=== PATIENT | female | born 1930 | race Caucasian/White ===

== ENCOUNTER 2019-02-24 19:15 | Inpatient (IN) | payer MEDICARE, OTHER ==
[2019-02-24] MEDS ORDERED: ATIVAN0.5 MG PO (19:22)
[2019-02-24] MEDS ORDERED: BISOPROLOL-HCT1 EAC1 (19:22)
[2019-02-24] MEDS ORDERED: PRAVACHOL20 MG (19:22)
[2019-02-24] MEDS ORDERED: NORVASC2.5 MG PO (19:22)
[2019-02-24] MEDS ORDERED: BISOPROLOL FUMARATE PO (19:32)
[2019-02-24 20:22] LABS: BASOPHILS 0.2 % (0-2); EOSINOPHILS 0.7 % (0-7); HEMATOCRIT 39.2 % (36.0-48.0); HEMOGLOBIN 13.4 g/dL (12-16); IMMATURE GRANULOCYTES 0.4 % (0-5); LYMPHOCYTES 7.8 % (15-50); MCH 31.1 pg (26.0-34.0); MCHC 34.2 g/dL (31.0-37.0); MEAN PLATELET VOLUME 10.3 fL (7.4-10.4); MONOCYTES 6.8 % (2-11); NEUTROPHILS 84.1 % (40-80); PLATELET COUNT 156 10x3/uL (130-400); RBC 4.31 10x6/uL (4.00-5.40); RDW 13.1 % (11.5-14.5); WBC 10.1 10x3/uL (4.8-10.8)
[2019-02-24 20:28] LABS: ALBUMIN 3.7 g/dL (3.4-5.0); ANION GAP 13.6 mmol/L (8-16); BILIRUBIN - TOTAL 0.35 mg/dL (0.2-1.3); CALCIUM 9.3 mg/dL (8.5-10.1); CREATININE - SERUM 0.8 mg/dL (0.6-1.3); POTASSIUM - SERUM 3.6 mmol/L (3.5-5.1); PROTEIN - SERUM 6.7 g/dL (6.4-8.2)
[2019-02-24 20:30] VITALS: BP 152/77
[2019-02-24 22:36] LABS: APPEARANCE CLEAR (CLEAR); BILIRUBIN NEGATIVE (NEGATIVE); COLOR YELLOW (YELLOW); GLUCOSE NEGATIVE (NEGATIVE); KETONE NEGATIVE (NEGATIVE); NITRITE NEGATIVE (NEGATIVE); PROTEIN NEGATIVE (NEGATIVE); SPECIFIC GRAVITY 1.015 (1.005-1.020); UROBILINOGEN NORMAL (NORMAL)
[2019-02-24 23:23] VITALS: BP 106/58
--- NOTE | 2019-02-24 23:52 | NUR ---
I have reviewed this patient and I concur with the Shift Assessment completed by the Licensed Practical Nurse today this shift.
[2019-02-25] VITALS (7 sets, daily range): BP systolic 138–150; BP diastolic 54–93; BMI 20.7; BMI 20.6
[2019-02-25 05:48] LABS: BASOPHILS 0 % (0-2); EOSINOPHILS 0 % (0-7); HEMATOCRIT 35.1 % (36.0-48.0); HEMOGLOBIN 11.9 g/dL (12-16); IMMATURE GRANULOCYTES 0.3 % (0-5); LYMPHOCYTES 11.3 % (15-50); MCH 30.4 pg (26.0-34.0); MCHC 33.9 g/dL (31.0-37.0); MCV 89.8 fL (80.0-100.0); MONOCYTES 7.6 % (2-11); NEUTROPHILS 80.8 % (40-80); PLATELET COUNT 140 10x3/uL (130-400); RBC 3.91 10x6/uL (4.00-5.40); RDW 13.1 % (11.5-14.5)
[2019-02-25 05:49] LABS: WBC 6.6 10x3/uL (4.8-10.8)
[2019-02-25 05:50] LABS: INR 1.13 (0.85-1.17)
[2019-02-25 05:59] LABS: CALC OSMOLALITY 281 mosm/kg (275-300); CALCIUM 8.4 mg/dL (8.5-10.1); CHLORIDE - SERUM 105 mmol/L (98-107); CREATININE - SERUM 0.7 mg/dL (0.6-1.3); GLUCOSE 117 mg/dL (74-106); MAGNESIUM - SERUM 1.8 mg/dL (1.8-2.4); PHOSPHOROUS 3.2 mg/dL (2.5-4.9); POTASSIUM - SERUM 3.3 mmol/L (3.5-5.1); SODIUM 140 mmol/L (136-145); eGFR NON AFRICAN AMERICAN 84 mL/min (90-120)
[2019-02-25 06:13] LABS: UREA NITROGEN 19 mg/dL (7-18)
[2019-02-25] MEDS ORDERED: ALENDRONATE TAB 70M PO (06:45)
--- NOTE | 2019-02-25 08:00 | NUR ---
ASSESSMENT PER FLOW SHEET. PT IS WITHOUT DISTRESS.FALL PREVENTION IN PLACE.SONG ON AND WORKING
--- NOTE | 2019-02-25 08:16 | NUR ---
PAIN MEDS ORDERED PER MAR
--- NOTE | 2019-02-25 13:19 | MORECARE ---
CASE MANAGEMENT DISCHARGE SUMMARY PATIENT: VENESSA HICKS UNIT: [id number] ADM DATE: 02/24/19 AGE: 88 : [birth year] SEX: F ROOM/BED: D.2213 AUTHOR: FLAVIA WHITAKER PHYSICIAN: REFERRING PHYSICIAN: ADAM GALAN MD DATE OF SERVICE: 02/25/19 Discharge Plan Patient Name: VENESSA HICKS Facility: [facility]:[place] : 1930 Planned Disposition: Home with Home Health Anticipated Discharge Date: Discharge Date: Expected LOS: Initial Reviewer: [email or web address] Initial Review Date: 02/25/2019 Generated: 02/25/19 2:19 pm DCPIA - Discharge Planning Initial Assessment Updated by [email or web address]: Romi Deulca on 02/25/19 1:17 pm * Is the patient Alert and Oriented? Yes * PCP LUKE * Pharmacy [facility] [address] * Preadmission Environment Home Alone * ADLs Independent * Equipment Bedside Commode Rolling Walker Shower Chair Walker * Other Equipment LIFE ALERT * List name and contact numbers for known caregivers / representatives who currently or will assist patient after discharge: PAPITO HICKS ( SON) [phone] * Verbal permission to speak to the caregivers and representatives has been obtained from the patient. N/A * Please name any agencies selected above. WILL HAVE 24 HOUR CARE FROM [facility] * Additional services required to return to the preadmission environment? Yes * Has this patient been hospitalized within the prior 30 days at any hospital? No Patient Name: VENESSA HICKS Page [id number] at 1319 All edits/amendments must be made on the electronic document DICTATION DATE: 02/25/191317 TRAVELING ENGINEER: MANA 02/25/191317 RPT#: [id number] DC DATE: STATUS: ADM IN [facility] [address] [place] [address] END OF REPORT
--- NOTE | 2019-02-25 13:26 | MORECARE ---
CASE MANAGEMENT DISCHARGE SUMMARY PATIENT: VENESSA HICKS UNIT: [id number] ADM DATE: 02/24/19 AGE: 88 : [birth year] SEX: F ROOM/BED: D.2213 AUTHOR: FLAVIA WHITAKER PHYSICIAN: REFERRING PHYSICIAN: ADAM GALAN MD DATE OF SERVICE: 02/25/19 Discharge Plan Patient Name: VENESSA HICKS Facility: [facility]:[place] : 1930 Planned Disposition: Home with Home Health Anticipated Discharge Date: Discharge Date: Expected LOS: Initial Reviewer: [email or web address] Initial Review Date: 02/25/2019 Generated: 02/25/19 2:25 pm Comments DCP- Discharge Planning Updated by [email or web address]: Romi Deluca on 02/25/19 12:[address] Patient Name: VENESSA HICKS Admission Status: ER Accout number: [id number] Admission Date: 02-24-2019 : 1930 Admission Diagnosis: Attending: REUBEN GALAN Current LOS: 1 Anticipated DC Date: Planned Disposition: Home with Home Health Primary Insurance: MEDICARE A & B Discharge Planning Comments: CM met with patient to complete initial dc planning assessment. CM educated patient on the CM role and verbal consent given by patient to complete assessment. Patient lives at home where she was independent with her care. At discharge patient plans to return home and feels this is a safe discharge. She stated that her son will be her skip load driver home. She said that she will have [facility] for 24 hours a day while she is recovering. She would like home health also, but unsure of the company she will speak with her son and let me know. CM discussed availability of home health, rehab services, and medical equipment. She has a walker, shower chair. BSC, and life alert. Patient denied known discharge needs at this time. CM will continue to follow and will assist as needed with dc plans/needs. Director Of Software Engineering: Romi Deluca DCPIA - Discharge Planning Initial Assessment Updated by [email or web address]: Romi Deluca on 02/25/19 1:17 pm * Is the patient Alert and Oriented? Yes * PCP LUKE * Pharmacy [facility] [address] * Preadmission Environment Home Alone * ADLs Independent * Equipment Bedside Commode Rolling Walker Shower Chair Walker * Other Equipment LIFE ALERT * List name and contact numbers for known caregivers / representatives who currently or will assist patient after discharge: PAPITO HICKS ( SON) [phone] * Verbal permission to speak to the caregivers and representatives has been obtained from the patient. N/A * Please name any agencies selected above. WILL HAVE 24 HOUR CARE FROM [facility] * Additional services required to return to the preadmission environment? Yes * Has this patient been hospitalized within the prior 30 days at any hospital? No Last DP export: 02/25/19 12:19 p Patient Name: VENESSA HICKS Page 16661 at 1326 All edits/amendments must be made on the electronic document DICTATION DATE: 02/25/191324 CHENILLE MACHINE OPERATOR: MANA 02/25/19 1325 RPT#: [id number] DC DATE: STATUS: ADM IN [facility] [address] [place] [address] END OF REPORT
--- NOTE | 2019-02-25 14:15 | NUR ---
PT DECLINES MEDS FOR PAIN AFTER MED PULLED. MED RETURNED
--- NOTE | 2019-02-25 17:37 | NUR ---
REMAINS WITHOUT CHANGE FROM INITIAL SHIFT ASSESSMENT.CONT PLAN OF CARE
[2019-02-26] VITALS (12 sets, daily range): BP systolic 138–174; BP diastolic 58–90
--- NOTE | 2019-02-26 05:02 | NUR ---
Resting in bed with no needs noted or stated call light and fluids in reach.
[2019-02-26 05:57] LABS: BASOPHILS 0 % (0-2); EOSINOPHILS 0 % (0-7); HEMATOCRIT 33.2 % (36.0-48.0); HEMOGLOBIN 11.2 g/dL (12-16); IMMATURE GRANULOCYTES 0.4 % (0-5); LYMPHOCYTES 12.2 % (15-50); MCH 30.4 pg (26.0-34.0); MCHC 33.7 g/dL (31.0-37.0); MEAN PLATELET VOLUME 10.2 fL (7.4-10.4); MONOCYTES 13.8 % (2-11); NEUTROPHILS 73.6 % (40-80); PLATELET COUNT 118 10x3/uL (130-400); RBC 3.69 10x6/uL (4.00-5.40); RDW 13.1 % (11.5-14.5); WBC 7.7 10x3/uL (4.8-10.8)
[2019-02-26 07:45] LABS: ALKALINE PHOSPHATASE 60 U/L (46-116); BILIRUBIN - TOTAL 0.74 mg/dL (0.2-1.3); CALCIUM 7.8 mg/dL (8.5-10.1); CHLORIDE - SERUM 108 mmol/L (98-107); CREATININE - SERUM 0.6 mg/dL (0.6-1.3); GLUCOSE 117 mg/dL (74-106); POTASSIUM - SERUM 3.2 mmol/L (3.5-5.1); PROTEIN - SERUM 5.1 g/dL (6.4-8.2); SODIUM 141 mmol/L (136-145); eGFR NON AFRICAN AMERICAN > 90 mL/min (90-120)
[2019-02-26 07:48] LABS: ALBUMIN 2.7 g/dL (3.4-5.0); ALT (SGPT) 22 U/L (10-68); CALC OSMOLALITY 280 mosm/kg (275-300); UREA NITROGEN 11 mg/dL (7-18)
--- NOTE | 2019-02-26 07:49 | NUR ---
PT ALERT X 4. BREATH SOUNDS CLEAR BILAT. IV TO RIGHT FOREARM, PATENT, DRESSING CDI. RADAMES WRAP TO LEFT ARM. LEFT LEG AND HIP SUPPORTED BY PILLOWS. PT REPORTING NO PAIN AT THIS TIME. PT PRE OP COMPLETE. NO OTHER NEEDS AT THIS TIME.
--- NOTE | 2019-02-26 19:37 | NUR ---
RESTING IN BED RESPRATIONS EVEN AND LABORED. CALL LIGHT IN REACH.
[2019-02-27] VITALS (9 sets, daily range): BP systolic 127–157; BP diastolic 60–80
[2019-02-27 06:17] LABS: BASOPHILS 0 % (0-2); EOSINOPHILS 0 % (0-7); HEMOGLOBIN 9.5 g/dL (12-16); IMMATURE GRANULOCYTES 0.3 % (0-5); LYMPHOCYTES 6.5 % (15-50); MCH 30.3 pg (26.0-34.0); MCHC 33.9 g/dL (31.0-37.0); MCV 89.2 fL (80.0-100.0); MEAN PLATELET VOLUME 10.8 fL (7.4-10.4); MONOCYTES 14.3 % (2-11); NEUTROPHILS 78.9 % (40-80); PLATELET COUNT 133 10x3/uL (130-400); RBC 3.14 10x6/uL (4.00-5.40); RDW 13.3 % (11.5-14.5)
--- NOTE | 2019-02-27 06:46 | OP ---
PATIENT NAME: VENESSA MENESES MEDICAL RECORD: [id number] :[birth year] LOCATION:D.MS [id number] ADMISSION DATE:02/24/19 SURGEON: KAYODE BEE DO DATE OF OPERATION: 02/26/2019 PROCEDURE PERFORMED: Left distal radius open reduction and internal fixation and left proximal femur periprosthetic open reduction and internal fixation. INDICATIONS: Ms. 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 The stem did not appear to be loose on x-ray what we did plan in case we were to do a rupinder hip replacement. The wrist was also fractured and mostly up the dorsal ulnar cortex and was displaceable dorsally and ulnarly. She also had an ulnar styloid distal ulna fracture, did not need fixation. I informed her of the risks including infection, bleeding, damage to nerve and vessels, failure of fixation, damage to soft tissue and nerves, continued numbness and pain and nonunion also and malunion. She was okay with those risks and signed a consent. SURGEON: Kayode Bee DO DESCRIPTION OF PROCEDURE: The patient was given a block to the left upper extremity by the anesthesia in the preoperative area and taken to the operative suite, laid in the supine position, was sedated and intubated. She then was moved over to the Follett table. The left upper extremity was prepped and draped in the sterile fashion and placed on a Rizo stand. A timeout was performed and everyone was in agreeance of the correct side, site, patient, and procedure. The left upper extremity was then exsanguinated with an Esmarch and tourniquet was inflated to 250 mmHg for 51 minutes. The incision then began over the Facundo's tubercle inline with the middle finger and it was radial to it. Once the dissection was made through the skin, pickup and scissors were used to dissect down to the extensor retinaculum. This was incised and the third dorsal compartment was released as well as the second and the fourth getting down to the radius fracture. The fracture was then reduced and the Acumed dorsal buttress plate was placed on it and once it was in good position and good reduction of fracture, the K-wires were put in the plate to hold it and then, one screw was placed in the shaft in the oblong hole. This held the plate very nicely and had nice reduction. The other screw holes were then filled with locking screws, first distally and then proximally and x-rays were taken and it was in good position and then, the tourniquet was let down and any bleeding was coagulated at that time. The extensor retinaculum was then repaired with 2-0 Vicryl in a xagwls-px-oqick fashion. The site was then irrigated and then, a 4-0 Monocryl was used to close the skin in an inverted interrupted fashion and 5-0 Monocryl was ran on the skin and it was then closed with Prineo, Dermabond on the skin and then Adaptic, 4 x 4s, cast padding and she was placed in a volar splint. At that time, then, the drapes were taken down and the left arm was draped across the chest. The left hip was then prepped and draped in the sterile fashion. The incision then began over the anterior approach to the hip over the tensor fascia mikayla. Careful dissection was made down to the tensor fascia mikayla OPERATIVE REPORT [id number] VENESSA MENESES fascia and it was taken anteriorly and muscle belly posteriorly and then the interval was opened up in between the rectus. This was opened up and the ascending branch of the lateral femoral circumflex was tied off at that time and coagulated with the Aquamantys and the Bovie and then the dissection was made down to the hip joint. The capsule was then removed. The stem was then tested to see if it was well fixed and indeed it was, it pulled on and did not move at all. Then, a reduction maneuver was made and we got cables around the lesser trochanter and down the shaft slightly pulling reduction on the fracture there and holding it nicely and then another cable was placed just proximal to the lesser trochanter and around the greater cinching it down very nicely. These were tightened down and then cut. The site was then thoroughly irrigated. This held the fracture very well. We did internal and external rotation x-rays, which showed a good reduction and holding the fracture site well and again, the stem did not move well, the site was then irrigated. The capsule was closed with #2 Ethibond in a slhwph-wu-lntkj fashion and then placed Surgicel powder in the wound. The tensor fascia mikayla fascia was then closed with #1 Vicryl first a gbxoxz-gs-lvihp and then a running stitch. The skin was then closed with 2-0 Vicryl inverted interrupted fashion, 4-0 Monocryl ran on the skin, and a Prineo on the skin. Telfa and Tegaderm were then placed on the wound. Total tourniquet time for the left lower extremity was 51 minutes. COMPLICATIONS: None. Total blood loss was approximately 400 mL between the hip and the wrist. COMPLICATIONS: None. TRANSINT:[id number] Voice Confirmation ID: [id number] DOCUMENT ID: [id number] KAYODE BEE DO at 0646 CC: [id number] DICTATION DATE: 02/26/19 1422 COMPTOMETRIST: 02/27/19 0137 ADM IN [facility] [address] [place] [id number]
[2019-02-27 07:02] LABS: ALBUMIN 2.3 g/dL (3.4-5.0); ALKALINE PHOSPHATASE 49 U/L (46-116); ALT (SGPT) 23 U/L (10-68); BILIRUBIN - TOTAL 0.46 mg/dL (0.2-1.3); CALCIUM 7.4 mg/dL (8.5-10.1); CARBON DIOXIDE 21.9 mmol/L (21.0-32.0); CHLORIDE - SERUM 108 mmol/L (98-107); CREATININE - SERUM 0.7 mg/dL (0.6-1.3); GLUCOSE 139 mg/dL (74-106); POTASSIUM - SERUM 3.1 mmol/L (3.5-5.1); PROTEIN - SERUM 5.3 g/dL (6.4-8.2); SODIUM 141 mmol/L (136-145); eGFR NON AFRICAN AMERICAN 84 mL/min (90-120)
[2019-02-27 07:05] LABS: CALC OSMOLALITY 284 mosm/kg (275-300); UREA NITROGEN 17 mg/dL (7-18)
--- NOTE | 2019-02-27 10:08 | NUR ---
PT ALERT X 4. BREATH SOUNDS CLEAR BILAT. TELEMETRY IN PLACE. LEFT ARM IN RADAMES WRAP AND SLING. IV TO RIGHT FOREARM, PATENT, DRESSING CLEAN DRY AND INTACT. DRESSING TO LEFT HIP, BRUISING, DRESSING CDI. SCD'S IN PLACE. CLEMENTE IN PLACE, URINE YELLOW AND CLEAR. PT REPORTING PAIN 3/10, WILL MONITOR. BED LOW, CALL LIGHT IN REACH. NO OTHER NEEDS AT THIS TIME.
--- NOTE | 2019-02-27 19:42 | NUR ---
Resting in bed call light and fluids in reach. bed low, IV to Right forearm with ns at 50ml/hr sling and luis armando rap with dressing C/D/I to are and hip. no s/s of distress no needs noted or stated.
[2019-02-28 00:16] VITALS: BP 127/62
[2019-02-28 04:30] VITALS: BP 124/63
[2019-02-28 04:36] VITALS: BP 124/63
[2019-02-28 04:47] LABS: BASOPHILS 0 % (0-2); EOSINOPHILS 0.1 % (0-7); HEMATOCRIT 23.6 % (36.0-48.0); IMMATURE GRANULOCYTES 0.1 % (0-5); LYMPHOCYTES 11.1 % (15-50); MCH 30.5 pg (26.0-34.0); MCHC 33.9 g/dL (31.0-37.0); MCV 90.1 fL (80.0-100.0); MEAN PLATELET VOLUME 10.3 fL (7.4-10.4); MONOCYTES 13.9 % (2-11); NEUTROPHILS 74.8 % (40-80); PLATELET COUNT 133 10x3/uL (130-400); RBC 2.62 10x6/uL (4.00-5.40); RDW 13.7 % (11.5-14.5); WBC 7.6 10x3/uL (4.8-10.8)
[2019-02-28 05:01] LABS: ALKALINE PHOSPHATASE 48 U/L (46-116); ALT (SGPT) 23 U/L (10-68); BILIRUBIN - TOTAL 0.55 mg/dL (0.2-1.3); CALC OSMOLALITY 283 mosm/kg (275-300); CALCIUM 7.9 mg/dL (8.5-10.1); CARBON DIOXIDE 23.4 mmol/L (21.0-32.0); CHLORIDE - SERUM 109 mmol/L (98-107); CREATININE - SERUM 0.7 mg/dL (0.6-1.3); GLUCOSE 118 mg/dL (74-106); POTASSIUM - SERUM 3.4 mmol/L (3.5-5.1); PROTEIN - SERUM 4.9 g/dL (6.4-8.2); SODIUM 141 mmol/L (136-145); UREA NITROGEN 18 mg/dL (7-18); eGFR NON AFRICAN AMERICAN 84 mL/min (90-120)
[2019-02-28 08:29] VITALS: BP 116/52
--- NOTE | 2019-02-28 09:00 | NUR ---
PT ALERT X 4. BREATH SOUNDS CLEAR BILAT. TELEMETRY IN PLACE. IV TO RIGHT FOREARM, PATENT, DRESSING CDI. PT REPORTING NO PAIN AT THIS TIME. SLING AND RADAMES WRAP TO LEFT ARM. DRESSING TO LEFT HIP CDI, SLIGHT BRUISING. BREAKFAST IN ROOM. BED LOW, CALL LIGHT IN REACH. NO OTHER NEEDS AT THIS TIME.
--- NOTE | 2019-02-28 11:59 | NUR ---
Nutrition follow up: Regular diet with 50,25,25% intake of meals yesterday Reviewed chart. Pt is sleeping now Possible d/c tomorrow Add Ensure RD following
--- NOTE | 2019-02-28 17:16 | NUR ---
OT NOTE: PT COMPLETED BED MOB AND POSITIONING WITH MOD/MAX A. THANK YOU, JESSE MCRAE
--- NOTE | 2019-02-28 19:35 | NUR ---
PT SITTING UP IN BED, NO SIGNS OF DISTRESS. ALERT AND ORIENTED. DENIES NEEDS OR PAIN. DRESSINGS TO LEFT ARM AND HIP CDI. CLEMENTE DRAINING CLEAR YELLOW URINE. STATES SHE STILL HAS NOT BEEN ABLE TO HAVE BM. IV RIGHT FA INFUSING PRBC. VSS. SCDS ON. DENIES OTHER NEEDS. CL IN REACH, WILL CONT TO MONITOR
--- NOTE | 2019-02-28 21:00 | NUR ---
PRBC DONE. VSS. WILL CONT TO MONITOR
[2019-02-28 21:24] VITALS: BP 124/61
[2019-03-01 01:28] VITALS: BP 115/50
[2019-03-01 05:34] VITALS: BP 140/63
[2019-03-01 05:39] LABS: BASOPHILS 0.1 % (0-2); EOSINOPHILS 1.7 % (0-7); HEMATOCRIT 27.6 % (36.0-48.0); HEMOGLOBIN 9.5 g/dL (12-16); IMMATURE GRANULOCYTES 0.3 % (0-5); LYMPHOCYTES 11.9 % (15-50); MCH 30.2 pg (26.0-34.0); MCHC 34.4 g/dL (31.0-37.0); MEAN PLATELET VOLUME 9.7 fL (7.4-10.4); MONOCYTES 10.9 % (2-11); NEUTROPHILS 75.1 % (40-80); PLATELET COUNT 141 10x3/uL (130-400); RDW 15.4 % (11.5-14.5); WBC 6.9 10x3/uL (4.8-10.8)
[2019-03-01 05:49] LABS: ALKALINE PHOSPHATASE 72 U/L (46-116); BILIRUBIN - TOTAL 0.73 mg/dL (0.2-1.3); CALC OSMOLALITY 280 mosm/kg (275-300); CALCIUM 8.2 mg/dL (8.5-10.1); CARBON DIOXIDE 25.8 mmol/L (21.0-32.0); CHLORIDE - SERUM 109 mmol/L (98-107); CREATININE - SERUM 0.6 mg/dL (0.6-1.3); GLUCOSE 115 mg/dL (74-106); PROTEIN - SERUM 5.2 g/dL (6.4-8.2); SODIUM 140 mmol/L (136-145); UREA NITROGEN 16 mg/dL (7-18); eGFR NON AFRICAN AMERICAN > 90 mL/min (90-120)
[2019-03-01 05:50] LABS: MCV 87.6 fL (80.0-100.0); RBC 3.15 10x6/uL (4.00-5.40)
[2019-03-01 05:59] LABS: ALT (SGPT) 31 U/L (10-68)
--- NOTE | 2019-03-01 07:35 | NUR ---
PT RESTING IN BED WATCHING TV. ALERT AND ORIENTED. NO ACUTE DISTRESS NOTED. REPORTS PAIN 3/10 AT THIS TIME. DENIES NEEDS FOR PAIN MEDICATION AT THIS TIME. IV TO RIGHT FOREARM WITH 1/2 NS @ 50 ML/HR INFUSING VIA PUMP. SITE WITHOUT REDNESS OR EDEMA. F/C PATENT TO GRAVITY DRAINING YELLOW URINE. DENIES FURTHER NEEDS AT THIS TIME. CL WITHIN REACH. ENCOURAGED TO CALL WITH NEEDS. CONTINUE POC
[2019-03-01 09:10] VITALS: BP 140/73
[2019-03-01 13:04] VITALS: BP 120/56
--- NOTE | 2019-03-01 16:15 | NUR ---
OT NOTE: PT COMPLETED BED MOB TO EOB WITH MAX A. PT HAS POOR TRUNK CONTROL. PT COMPLETED SIT TO STAND WITH MAX A. PT REQUIRED EXTENSIVE CUES TO MAINTAIN TTWB. PT COMPLETED LB HYGIENE WITH MAX A. THANK YOU, JESSE MCRAE
[2019-03-01 16:44] VITALS: BP 132/57
--- NOTE | 2019-03-01 18:50 | NUR ---
PT F/C DISCONTINUED PER MD ORDERS. PT REED WELL. CATH BULB INTACT. UA COLLECTED AT THIS TIME
[2019-03-01 19:29] LABS: APPEARANCE CLEAR (CLEAR); BILIRUBIN NEGATIVE (NEGATIVE); COLOR YELLOW (YELLOW); GLUCOSE NEGATIVE (NEGATIVE); KETONE NEGATIVE (NEGATIVE); NITRITE NEGATIVE (NEGATIVE); PROTEIN TRACE mg/dL (NEGATIVE); UROBILINOGEN NORMAL (NORMAL)
--- NOTE | 2019-03-01 19:45 | NUR ---
PT SITTING UP IN BED, NO SIGNS OF DISTRESS. ALERT AND ORIENTED. DENIES PAIN. DRESSING TO LEFT ARM AND LEFT HIP CDI. SCDS IN PLACE. IV RIGHT FA INFUSING NS @ 30. DENIES NEEDS AT THIS TIME. CL IN REACH, WILL CONT TO MONITOR
[2019-03-01 20:57] VITALS: BP 149/69
[2019-03-02 01:42] VITALS: BP 145/74
[2019-03-02 04:56] LABS: BASOPHILS 0.2 % (0-2); HEMATOCRIT 26.5 % (36.0-48.0); IMMATURE GRANULOCYTES 0.3 % (0-5); LYMPHOCYTES 11.9 % (15-50); MCH 29.8 pg (26.0-34.0); MCV 87.7 fL (80.0-100.0); MEAN PLATELET VOLUME 9.7 fL (7.4-10.4); MONOCYTES 9.4 % (2-11); NEUTROPHILS 74.2 % (40-80); PLATELET COUNT 160 10x3/uL (130-400); RBC 3.02 10x6/uL (4.00-5.40); RDW 15.3 % (11.5-14.5); WBC 6.2 10x3/uL (4.8-10.8)
[2019-03-02 05:19] LABS: ALKALINE PHOSPHATASE 73 U/L (46-116); CALC OSMOLALITY 286 mosm/kg (275-300); CALCIUM 8.3 mg/dL (8.5-10.1); CHLORIDE - SERUM 111 mmol/L (98-107); CREATININE - SERUM 0.7 mg/dL (0.6-1.3); GLUCOSE 109 mg/dL (74-106); POTASSIUM - SERUM 3.8 mmol/L (3.5-5.1); PROTEIN - SERUM 5.3 g/dL (6.4-8.2); SODIUM 143 mmol/L (136-145); UREA NITROGEN 14 mg/dL (7-18); eGFR NON AFRICAN AMERICAN 84 mL/min (90-120)
[2019-03-02 05:24] VITALS: BP 145/58
[2019-03-02 05:26] LABS: ALT (SGPT) 41 U/L (10-68)
--- NOTE | 2019-03-02 07:20 | NUR ---
PT RESTING IN BED, NO ACUTE DISTRESS NOTED. LEFT ARM WITH RADAMES WRAP, EXTREMITY WARM TO TOUCH, ABLE TO MOVE FINGERS. IV TO RIGHT FOREARM WITH NS @ 30ML/HR INFUSING VIA PUMP. SITE WITHOUT REDNESS OR EDEMA. DRESSING TO LEFT HIP C/D/I. DENIES PAIN AT THIS TIME. DENIES FURTHER NEEDS. CL WITHIN REACH. ENCOURAGED TO CALL WITH NEEDS. CONTINUE POC
[2019-03-02 08:56] VITALS: BP 148/72
--- NOTE | 2019-03-02 13:13 | MORECARE ---
CASE MANAGEMENT DISCHARGE SUMMARY PATIENT: VENESSA HICKS UNIT: [id number] ADM DATE: 02/24/19 AGE: 88 : [birth year] SEX: F ROOM/BED: D.2213 AUTHOR: FLAVIA WHITAKER PHYSICIAN: REFERRING PHYSICIAN: ADAM GALAN MD DATE OF SERVICE: 03/02/19 Discharge Plan Patient Name: VENESSA HICKS Facility: [facility]:[place] : 1930 Planned Disposition: Home with Home Health Anticipated Discharge Date: Discharge Date: Expected LOS: Initial Reviewer: [email or web address] Initial Review Date: 02/25/2019 Generated: 03/02/19 2:13 pm Comments DCP- Discharge Planning Updated by [email or web address]: Romi Deluca on 03/02/19 12:[address] SPOKE WITH PATIENT ABOUT DME AND HOME HEALTH AND SHE STATED THAT SHE DOES NOT THINK THAT SHE CAN GO HOME AND WOULD LIKE TO GO TO INPATIENT REHAB AT [facility]. REFERRAL ORDERED AND CALLED AND SPOKE WITH FRANCO DCP- Discharge Planning Updated by [email or web address]: Romi Deluca on 02/25/19 12:[address] Patient Name: VENESSA HICKS Admission Status: ER Accout number: [id number] Admission Date: 02-24-2019 : 1930 Admission Diagnosis: Attending: REUBEN GALAN Current LOS: 1 Anticipated DC Date: Planned Disposition: Home with Home Health Primary Insurance: MEDICARE A & B Discharge Planning Comments: CM met with patient to complete initial dc planning assessment. CM educated patient on the CM role and verbal consent given by patient to complete assessment. Patient lives at home where she was independent with her care. At discharge patient plans to return home and feels this is a safe discharge. She stated that her son will be her speedboat driver home. She said that she will have [facility] for 24 hours a day while she is recovering. She would like home health also, but unsure of the company she will speak with her son and let me know. CM discussed availability of home health, rehab services, and medical equipment. She has a walker, shower chair. BSC, and life alert. Patient denied known discharge needs at this time. CM will continue to follow and will assist as needed with dc plans/needs. Information Security Specialist: Romi Deluca DCPIA - Discharge Planning Initial Assessment Updated by [email or web address]: Romi Deluca on 02/25/19 1:17 pm * Is the patient Alert and Oriented? Yes * PCP LUKE * Pharmacy [facility] [address] * Preadmission Environment Home Alone * ADLs Independent * Equipment Bedside Commode Rolling Walker Shower Chair Walker * Other Equipment LIFE ALERT * List name and contact numbers for known caregivers / representatives who currently or will assist patient after discharge: PAPITO HICKS ( SON) [phone] * Verbal permission to speak to the caregivers and representatives has been obtained from the patient. N/A * Please name any agencies selected above. WILL HAVE 24 HOUR CARE FROM [facility] * Additional services required to return to the preadmission environment? Yes * Has this patient been hospitalized within the prior 30 days at any hospital? No Last DP export: 02/25/19 12:26 p Patient Name: VENESSA HICKS Page [id number] at 1313 All edits/amendments must be made on the electronic document DICTATION DATE: 03/02/19 1313 CLINICAL ASST: MANA 03/02/19 1313 RPT#: [id number] DC DATE: STATUS: ADM IN [facility] [address] [place] [address] END OF REPORT
[2019-03-02 13:26] VITALS: BP 127/62
--- NOTE | 2019-03-02 14:49 | NUR ---
Rehab Prescreening Consult recieved and the chart has been reviewed. She is a good ARU candidate, and will be accepted when she is medically stable and can participate in the required therapy. Stephanie James RN Clinical liaison, Rehab
--- NOTE | 2019-03-02 16:44 | NUR ---
OT NOTE: PT COMPLETED BED MOB WITH MOD A. PT COMPLETED SIT TO STAND WITH MOD A AND MOD CUES TO ADHERE TO TTWB STATUS. PT COMPLETED GROOMING TASK WITH MIN A. THANK YOU, JESSE MCRAE
[2019-03-02 17:25] VITALS: BP 117/67
[2019-03-02 20:00] VITALS: BP 118/67
--- NOTE | 2019-03-02 21:03 | NUR ---
AWAKE,ALERT,RESP EVEN AND UNALBORED. NO DISTRESS NOTED. RADAMES WRAP INTACT TO LEFT ARM WITHOUT DRAINAGE NOTED. DRESSING INTACT TO LEFT HIP WITHOUT DRAINAGE NOTED. CL IN REACH
[2019-03-03] VITALS: BP 137/68
--- NOTE | 2019-03-03 03:03 | NUR ---
I have reviewed this patient and I concur with the Shift Assessment completed by the Licensed Practical Nurse today this shift.
[2019-03-03 04:00] VITALS: BP 143/61
--- NOTE | 2019-03-03 08:00 | NUR ---
PT RESTING IN BED PUTTING MAKEUP ON. RESP EVEN AND UNLABORED. DENIES PAIN AT THIS TIME. DRESSING TO LEFT ARM C/D/I, EXTREMITY WARM TO TOUCH, ABLE TO MOVE FINGER.. IV TO RIGHT FOREARM WITH NS @ 30ML/HR INFUSING VIA PUMP. SITE WITHOUT REDNESS OR EDEMA. DRESSING TO LEFT HIP C/D/I. DENIES FURTHER NEEDS AT THIS TIME. CL WITHIN REACH. ENCOURAGED TO CALL WITH NEEDS. CONTINUE POC
[2019-03-03 09:00] VITALS: BP 134/65
--- NOTE | 2019-03-03 09:35 | MORECARE ---
CASE MANAGEMENT DISCHARGE SUMMARY PATIENT: VENESSA HICKS UNIT: [id number] ADM DATE: 02/24/19 AGE: 88 : [birth year] SEX: F ROOM/BED: D.2213 AUTHOR: JULIANNE,DOC PHYSICIAN: REFERRING PHYSICIAN: ADAM GALAN MD DATE OF SERVICE: 03/03/19 Discharge Plan Patient Name: VENESSA HICKS Facility: [facility]:[place] : 1930 Planned Disposition: Home with Home Health Anticipated Discharge Date: Discharge Date: Expected LOS: Initial Reviewer: [email or web address] Initial Review Date: 02/25/2019 Generated: 03/03/19 10:35 am Comments DCP- Discharge Planning Updated by [email or web address]: Romi Deluca on 03/03/19 8:[address] IMM served and explained DCP- Discharge Planning Updated by [email or web address]: Romi Deluca on 03/02/19 12:[address] SPOKE WITH PATIENT ABOUT DME AND HOME HEALTH AND SHE STATED THAT SHE DOES NOT THINK THAT SHE CAN GO HOME AND WOULD LIKE TO GO TO INPATIENT REHAB AT [facility]. REFERRAL ORDERED AND CALLED AND SPOKE WITH FRANCO DCP- Discharge Planning Updated by [email or web address]: Romi Deluca on 02/25/19 12:[address] Patient Name: VENESSA HICKS Admission Status: ER Accout number: [id number] Admission Date: 02-24-2019 : 1930 Admission Diagnosis: Attending: REUBEN GALAN Current LOS: 1 Anticipated DC Date: Planned Disposition: Home with Home Health Primary Insurance: MEDICARE A & B Discharge Planning Comments: CM met with patient to complete initial dc planning assessment. CM educated patient on the CM role and verbal consent given by patient to complete assessment. Patient lives at home where she was independent with her care. At discharge patient plans to return home and feels this is a safe discharge. She stated that her son will be her pile driver engineer home. She said that she will have [facility] for 24 hours a day while she is recovering. She would like home health also, but unsure of the company she will speak with her son and let me know. CM discussed availability of home health, rehab services, and medical equipment. She has a walker, shower chair. BSC, and life alert. Patient denied known discharge needs at this time. CM will continue to follow and will assist as needed with dc plans/needs. Operator Cavity Pump: Romi Deluca DCPIA - Discharge Planning Initial Assessment Updated by [email or web address]: Romi Deluca on 02/25/19 1:17 pm * Is the patient Alert and Oriented? Yes * PCP LUKE * Pharmacy [facility] [address] * Preadmission Environment Home Alone * ADLs Independent * Equipment Bedside Commode Rolling Walker Shower Chair Walker * Other Equipment LIFE ALERT * List name and contact numbers for known caregivers / representatives who currently or will assist patient after discharge: PAPITO HICKS ( SON) [phone] * Verbal permission to speak to the caregivers and representatives has been obtained from the patient. N/A * Please name any agencies selected above. WILL HAVE 24 HOUR CARE FROM [facility] * Additional services required to return to the preadmission environment? Yes * Has this patient been hospitalized within the prior 30 days at any hospital? No Coverage Notice Reviewer: [email or web address] - Romi Deluca Notice Issued Date-Time: 03/03/2019 9:00 Notice Type: IM Discharge Notice Notice Delivered To: Patient Relationship to Patient: Medical Transcription Name: Delivery Method: HAND - Hand Delivered Idania Days: Prior Verbal Notification: Recipient Understood Notice: Yes Recipient Signature: Yes Med Rec Note Co-signed by Attending: Coverage Notice Comment: Last DP export: 03/02/19 12:13 p Patient Name: VENESSA HICKS Page 20323 at 0935 All edits/amendments must be made on the electronic document DICTATION DATE: 03/03/19934 NURSE RECRUITER: AMNA 03/03/19934 RPT#: [id number] DC DATE: STATUS: ADM IN [facility] [address] [place] [address] END OF REPORT
[2019-03-03 12:36] VITALS: BP 133/63
--- NOTE | 2019-03-03 14:06 | NUR ---
REHAB PRESCREENING Ms. Meneses continues to have daily temps. Rehab continues to follow. Discussed with Cherry Bess, Senior Marketing Coordinator. Thank you for this referral! Anna Tubbs, PROOF TECHNICIAN Rehab PD
--- NOTE | 2019-03-03 16:12 | NUR ---
OT NOTE: PT COMPLETED SUPINE TO SIT WITH MOD A. PT COMPLETED SIT TO STAND WITH MOD/MIN A. PT COMPLETED TOILETING TASKS WIT MOD/MAX A. THANK YOU, JESSE MCRAE
--- NOTE | 2019-03-03 16:13 | NUR ---
OT NOTE: PT REQUESTING TO GO TO BATHROOM. BED MOB WITH MIN/MOD ASSIST. LOCATED A BS COMMODE VS USING BED DERAS. TRANSFER TO BS COMMODE WITH MOD ASSIST, HOWEVER, PT INCONT OF URINE BY THIS TIME. PT ABLE TO SIT ON BS COMMODE AND PERFORM BATHING OF UPPER BODY WITH SET UP BUT MAX ASSIST FOR LOWER BODY AND PERINEAL AREA. PT FATIGUED AT THIS TIME AND REQUIRED MAX ASSIST BACK TO BED AND MAX ASSIST FOR BED MOB. FEEDING WITH SET UP OF TRAY AND EXT TIME. PT VERY MOTIVATED TO PERFORM MUCH SHE CAN WITHOUT ASSIST. PT IS A GOOD CANDIDATE FOR IP REHAB. RADHA OSEGUERA, O TR/L
--- NOTE | 2019-03-03 16:30 | NUR ---
CONTACTED PHARMACY REGARDING PT MEDICATION SINEMET NOT BEING AVAILABLE IN [employer] [facility]. WAS INFORMED AT THIS TIME THERE MAY BE MANY MEDICATIONS NOT AVAILABLE. 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 WAS TOLD THAT IT WOULD BE WORKED ON
[2019-03-03 16:43] VITALS: BP 138/71
--- NOTE | 2019-03-03 19:35 | NUR ---
ASSISTED ONTO BEDPAN TO VOID. ALERT AND ORIENTED X4. REPORTS PAIN IN LT HIP AND LT WRIST 2 ON PAIN SCALE. RESP EVEN AND NONLABORED. DRSG TO LT HIP AND LT WRIST. PEDAL PULSES STRONG. SCDS IN USE BILAT. NS @ 30 MLHR INFUSING IN RT FOREARM WITHOUT DIFF. NO DISTRESS. SR ELEVATED X2. CL IN REACH. SONG ALARM IN USE.
[2019-03-03 20:00] VITALS: BP 133/86
--- NOTE | 2019-03-03 21:25 | NUR ---
REQUESTED ATIVAN FOR ANXIETY. MEDICATED ORDERED. SONG ON. CL IN REACH.
[2019-03-04] VITALS: BP 150/71
--- NOTE | 2019-03-04 03:48 | NUR ---
HAS RESTED WELL SO FAR THIS SHIFT. NO DISTRESS. CL IN REACH.
[2019-03-04 04:00] VITALS: BP 171/82
--- NOTE | 2019-03-04 04:39 | NUR ---
MEDICATED WITH NORCO FOR C/O PAIN.
[2019-03-04 06:27] LABS: BASOPHILS 0.2 % (0-2); HEMATOCRIT 26.3 % (36.0-48.0); HEMOGLOBIN 8.7 g/dL (12-16); IMMATURE GRANULOCYTES 1.3 % (0-5); LYMPHOCYTES 14.1 % (15-50); MCH 29.2 pg (26.0-34.0); MCHC 33.1 g/dL (31.0-37.0); MCV 88.3 fL (80.0-100.0); MEAN PLATELET VOLUME 9.4 fL (7.4-10.4); MONOCYTES 10.1 % (2-11); NEUTROPHILS 70.3 % (40-80); RBC 2.98 10x6/uL (4.00-5.40); RDW 14.9 % (11.5-14.5)
[2019-03-04 06:32] LABS: CALC OSMOLALITY 283 mosm/kg (275-300); CALCIUM 8.4 mg/dL (8.5-10.1); CARBON DIOXIDE 24.5 mmol/L (21.0-32.0); CHLORIDE - SERUM 109 mmol/L (98-107); CREATININE - SERUM 0.7 mg/dL (0.6-1.3); GLUCOSE 123 mg/dL (74-106); POTASSIUM - SERUM 3.6 mmol/L (3.5-5.1); SODIUM 141 mmol/L (136-145); UREA NITROGEN 19 mg/dL (7-18); eGFR NON AFRICAN AMERICAN 84 mL/min (90-120)
[2019-03-04 06:43] LABS: PLATELET COUNT 207 10x3/uL (130-400)
[2019-03-04 09:00] VITALS: BP 138/67
[2019-03-04] MEDS ORDERED: LOVENOX40 MG/0.4 SC ×2 (12:34→14:02)
[2019-03-04] MEDS ORDERED: MIRALAX17 GM PO (12:35)
[2019-03-04] MEDS ORDERED: PROTONIX40 MG PO (12:35)
[2019-03-04] MEDS ORDERED: Senokot-S Tablet PO (12:35)
[2019-03-04] MEDS ORDERED: LEVOFLOXACIN500 MG PO ×2 (12:36→14:03)
[2019-03-04] MEDS ORDERED: ASPIRIN81 MG PO (12:37)
[2019-03-04 13:23] VITALS: BP 170/88
[2019-03-04] MEDS ORDERED: HYDROCODON-ACE1 EA10 PO (14:04)
[2019-03-04] MEDS ORDERED: HYDROCODON-ACE1 EAC7 PO (14:06)
--- NOTE | 2019-03-04 14:14 | MORECARE ---
CASE MANAGEMENT DISCHARGE SUMMARY PATIENT: VENESSA HICKS UNIT: [id number] ADM DATE: 02/24/19 AGE: 88 : [birth year] SEX: F ROOM/BED: D.2213 AUTHOR: FLAVIA WHITAKER PHYSICIAN: REFERRING PHYSICIAN: ADAM GALAN MD DATE OF SERVICE: 03/04/19 Discharge Plan Patient Name: VENESSA HICKS Facility: [facility]:[place] : 1930 Planned Disposition: Home with Home Health Anticipated Discharge Date: Discharge Date: Expected LOS: Initial Reviewer: [email or web address] Initial Review Date: 02/25/2019 Generated: 03/04/19 3:13 pm Comments DCP- Discharge Planning Updated by [id number]: Romi Deluca on 03/04/19 1:[address] Patient will be discharging to inpatient rehab at [facility] today DCP- Discharge Planning Updated by [id number]: Romi Deluca on 03/03/19 8:[address] IMM served and explained DCP- Discharge Planning Updated by [email or web address]: Romi Deluca on 03/02/19 12:[address] SPOKE WITH PATIENT ABOUT DME AND HOME HEALTH AND SHE STATED THAT SHE DOES NOT THINK THAT SHE CAN GO HOME AND WOULD LIKE TO GO TO INPATIENT REHAB AT [facility]. REFERRAL ORDERED AND CALLED AND SPOKE WITH FRANCO DCP- Discharge Planning Updated by [email or web address]: Romi Deluca on 02/25/19 12:[address] Patient Name: VENESSA HICKS Admission Status: ER Accout number: [id number] Admission Date: 02-24-2019 : 1930 Admission Diagnosis: Attending: REUBEN GALAN Current LOS: 1 Anticipated DC Date: Planned Disposition: Home with Home Health Primary Insurance: MEDICARE A & B Discharge Planning Comments: CM met with patient to complete initial dc planning assessment. CM educated patient on the CM role and verbal consent given by patient to complete assessment. Patient lives at home where she was independent with her care. At discharge patient plans to return home and feels this is a safe discharge. She stated that her son will be her taxi cab driver home. She said that she will have [facility] for 24 hours a day while she is recovering. She would like home health also, but unsure of the company she will speak with her son and let me know. CM discussed availability of home health, rehab services, and medical equipment. She has a walker, shower chair. BSC, and life alert. Patient denied known discharge needs at this time. CM will continue to follow and will assist as needed with dc plans/needs. Library Customer Service Clerk: Romi Deluca DCPIA - Discharge Planning Initial Assessment Updated by [id number]: Romi Deluca on 02/25/19 1:17 pm * Is the patient Alert and Oriented? Yes * PCP LUKE * Pharmacy [facility] [address] * Preadmission Environment Home Alone * ADLs Independent * Equipment Bedside Commode Rolling Walker Shower Chair Walker * Other Equipment LIFE ALERT * List name and contact numbers for known caregivers / representatives who currently or will assist patient after discharge: PPAITO HICKS ( SON) [phone] * Verbal permission to speak to the caregivers and representatives has been obtained from the patient. N/A * Please name any agencies selected above. WILL HAVE 24 HOUR CARE FROM [facility] * Additional services required to return to the preadmission environment? Yes * Has this patient been hospitalized within the prior 30 days at any hospital? No Coverage Notice Reviewer: [id number] - Romi Deluca Notice Issued Date-Time: 03/03/2019 9:00 Notice Type: IM Discharge Notice Notice Delivered To: Patient Relationship to Patient: Bulk Sugar Handler Name: Delivery Method: HAND - Hand Delivered Idania Days: Prior Verbal Notification: Recipient Understood Notice: Yes Recipient Signature: Yes Med Rec Note Co-signed by Attending: Coverage Notice Comment: Last DP export: 03/03/19 8:35 a Patient Name: VENESSA HICKS Page 10104 at 1414 All edits/amendments must be made on the electronic document DICTATION DATE: 03/04/191412 CARTON FORMING MACHINE ADJUSTER: MANA 03/04/191412 RPT#: [id number] DC DATE: STATUS: ADM IN [facility] [address] [place] [address] END OF REPORT
--- NOTE | 2019-03-04 14:30 | NUR ---
CALL X2 TO REHAB TO GIVE REPORT. NO ANSWER
--- NOTE | 2019-03-04 14:35 | NUR ---
IV DCD WITH CATH TIP INTACT. LET UNIT FOR REHAB VIA WHEELCHAIR.
--- NOTE | 2019-03-04 14:37 | NUR ---
CALL TO REHAB, REPORT TO BRAD
--- NOTE | 2019-03-05 12:10 | MORECARE ---
CASE MANAGEMENT DISCHARGE SUMMARY PATIENT: VENESSA HICKS UNIT: [id number] ADM DATE: 02/24/19 AGE: 88 : [birth year] SEX: F ROOM/BED: D.2213 AUTHOR: FLAVIA WHITAKER PHYSICIAN: REFERRING PHYSICIAN: ADAM GALAN MD DATE OF SERVICE: 03/05/19 Discharge Plan Patient Name: VENESSA HICKS Facility: [facility]:[place] : 1930 Planned Disposition: Home with Home Health Anticipated Discharge Date: Discharge Date: 03/04/2019 Expected LOS: Initial Reviewer: [email or web address] Initial Review Date: 02/25/2019 Generated: 03/05/19 1:10 pm Comments DCP- Discharge Planning Updated by [email or web address]: Romi Deluca on 03/04/19 1:[address] Patient will be discharging to inpatient rehab at [facility] today DCP- Discharge Planning Updated by [email or web address]: Romi Deluca on 03/03/19 8:[address] IMM served and explained DCP- Discharge Planning Updated by [id number]: oRmi Deluca on 03/02/19 12:[address] SPOKE WITH PATIENT ABOUT DME AND HOME HEALTH AND SHE STATED THAT SHE DOES NOT THINK THAT SHE CAN GO HOME AND WOULD LIKE TO GO TO INPATIENT REHAB AT [facility]. REFERRAL ORDERED AND CALLED AND SPOKE WITH FRANCO DCP- Discharge Planning Updated by [id number]: Romi Deluca on 02/25/19 12:[address] Patient Name: VENESSA HICKS Admission Status: ER Accout number: [id number] Admission Date: 02-24-2019 : 1930 Admission Diagnosis: Attending: REUBEN GALAN Current LOS: 1 Anticipated DC Date: Planned Disposition: Home with Home Health Primary Insurance: MEDICARE A & B Discharge Planning Comments: CM met with patient to complete initial dc planning assessment. CM educated patient on the CM role and verbal consent given by patient to complete assessment. Patient lives at home where she was independent with her care. At discharge patient plans to return home and feels this is a safe discharge. She stated that her son will be her lumber driver home. She said that she will have [facility] for 24 hours a day while she is recovering. She would like home health also, but unsure of the company she will speak with her son and let me know. CM discussed availability of home health, rehab services, and medical equipment. She has a walker, shower chair. BSC, and life alert. Patient denied known discharge needs at this time. CM will continue to follow and will assist as needed with dc plans/needs. Mortgage Collector: Romi Deluca DCPIA - Discharge Planning Initial Assessment Updated by [email or web address]: Romi Deluca on 02/25/19 1:17 pm * Is the patient Alert and Oriented? Yes * PCP LUKE * Pharmacy [facility] [address] * Preadmission Environment Home Alone * ADLs Independent * Equipment Bedside Commode Rolling Walker Shower Chair Walker * Other Equipment LIFE ALERT * List name and contact numbers for known caregivers / representatives who currently or will assist patient after discharge: PAPITO HICKS ( SON) [phone] * Verbal permission to speak to the caregivers and representatives has been obtained from the patient. N/A * Please name any agencies selected above. WILL HAVE 24 HOUR CARE FROM [facility] * Additional services required to return to the preadmission environment? Yes * Has this patient been hospitalized within the prior 30 days at any hospital? No Coverage Notice Reviewer: [id number] - Romi Deluca Notice Issued Date-Time: 03/03/2019 9:00 Notice Type: IM Discharge Notice Notice Delivered To: Patient Relationship to Patient: Wire Bender Hand Name: Delivery Method: HAND - Hand Delivered Idania Days: Prior Verbal Notification: Recipient Understood Notice: Yes Recipient Signature: Yes Med Rec Note Co-signed by Attending: Coverage Notice Comment: Last DP export: 03/04/19 1:13 p Patient Name: VENESSA HICKS Page [phone] at 1210 All edits/amendments must be made on the electronic document DICTATION DATE: 03/05/19 1210 FISCAL ACCOUNTING CLERK: MANA 03/05/19 1210 RPT#: [id number] DC DATE:03/04/19 STATUS: DIS IN [facility] [address] [place] [address] END OF REPORT
--- NOTE | 2019-03-05 15:14 | MORECARE ---
CASE MANAGEMENT DISCHARGE SUMMARY PATIENT: VENESSA HICKS UNIT: [id number] ADM DATE: 02/24/19 AGE: 88 : [birth year] SEX: F ROOM/BED: D.2213 AUTHOR: FLAVIA WHITAKER PHYSICIAN: REFERRING PHYSICIAN: ADAM GALAN MD DATE OF SERVICE: 03/05/19 Discharge Plan Patient Name: VENESSA HICKS Facility: [facility]:[place] : 1930 Planned Disposition: Home with Home Health Anticipated Discharge Date: Discharge Date: 03/04/2019 Expected LOS: Initial Reviewer: [email or web address] Initial Review Date: 02/25/2019 Generated: 03/05/19 4:13 pm Comments DCP- Discharge Planning Updated by [email or web address]: Romi Deluca on 03/04/19 1:[address] Patient will be discharging to inpatient rehab at [facility] today DCP- Discharge Planning Updated by [id number]: Romi Deluca on 03/03/19 8:[address] IMM served and explained DCP- Discharge Planning Updated by [email or web address]: Romi Deluca on 03/02/19 12:[address] SPOKE WITH PATIENT ABOUT DME AND HOME HEALTH AND SHE STATED THAT SHE DOES NOT THINK THAT SHE CAN GO HOME AND WOULD LIKE TO GO TO INPATIENT REHAB AT [facility]. REFERRAL ORDERED AND CALLED AND SPOKE WITH FRANCO DCP- Discharge Planning Updated by [email or web address]: Romi Deluca on 02/25/19 12:[address] Patient Name: VENESSA HICKS Admission Status: ER Accout number: [id number] Admission Date: 02-24-2019 : 1930 Admission Diagnosis: Attending: REUBEN GALAN Current LOS: 1 Anticipated DC Date: Planned Disposition: Home with Home Health Primary Insurance: MEDICARE A & B Discharge Planning Comments: CM met with patient to complete initial dc planning assessment. CM educated patient on the CM role and verbal consent given by patient to complete assessment. Patient lives at home where she was independent with her care. At discharge patient plans to return home and feels this is a safe discharge. She stated that her son will be her personal driver home. She said that she will have [facility] for 24 hours a day while she is recovering. She would like home health also, but unsure of the company she will speak with her son and let me know. CM discussed availability of home health, rehab services, and medical equipment. She has a walker, shower chair. BSC, and life alert. Patient denied known discharge needs at this time. CM will continue to follow and will assist as needed with dc plans/needs. Shear Helper: Romi Deluca DCPIA - Discharge Planning Initial Assessment Updated by [id number]: Romi Deluca on 02/25/19 1:17 pm * Is the patient Alert and Oriented? Yes * PCP LUKE * Pharmacy [facility] [address] * Preadmission Environment Home Alone * ADLs Independent * Equipment Bedside Commode Rolling Walker Shower Chair Walker * Other Equipment LIFE ALERT * List name and contact numbers for known caregivers / representatives who currently or will assist patient after discharge: PAPITO HICKS ( SON) [phone] * Verbal permission to speak to the caregivers and representatives has been obtained from the patient. N/A * Please name any agencies selected above. WILL HAVE 24 HOUR CARE FROM [facility] * Additional services required to return to the preadmission environment? Yes * Has this patient been hospitalized within the prior 30 days at any hospital? No Coverage Notice Reviewer: [id number] - Romi Deluca Notice Issued Date-Time: 03/03/2019 9:00 Notice Type: IM Discharge Notice Notice Delivered To: Patient Relationship to Patient: Physician/Allergy/Immunology Name: Delivery Method: HAND - Hand Delivered Idania Days: Prior Verbal Notification: Recipient Understood Notice: Yes Recipient Signature: Yes Med Rec Note Co-signed by Attending: Coverage Notice Comment: Last DP export: 03/05/19 11:10 a Patient Name: VENESSA HICKS Page [phone] at 1514 All edits/amendments must be made on the electronic document DICTATION DATE: 03/05/191512 DIRECTOR OF ENGINEERING: MANA 03/05/191512 RPT#: [id number] DC DATE:03/04/19 STATUS: DIS [facility] [address] [place] [address] END OF REPORT
== END 2019-03-04 14:43 | DRG 480 ==
LOC: D.ER 19:15 → D.MS 23:27
PROVIDERS: Family Medicine; Internal Medicine Nephrology; Orthopaedic Surgery; ADMIT Emergency Medicine; ATTEND Emergency Medicine
PROC: 0PSJ04Z Reposition Left Radius with Internal Fixation Device, Open Approach (ICD-10-PCS; principal; 2019-02-26 08:00)
PROC: 0QS704Z Reposition Left Upper Femur with Internal Fixation Device, Open Approach (ICD-10-PCS; 2019-02-26 08:00)
DX: S52.92XA Unspecified fracture of left forearm, initial encounter for closed fracture (principal); S72.142A Displaced intertrochanteric fracture of left femur, initial encounter for closed fracture; M97.02XA Periprosthetic fracture around internal prosthetic left hip joint, initial encounter; D62 Acute posthemorrhagic anemia; S52.612A Displaced fracture of left ulna styloid process, initial encounter for closed fracture; W19.XXXA Unspecified fall, initial encounter; I10 Essential (primary) hypertension; E78.5 Hyperlipidemia, unspecified

== ENCOUNTER 2019-03-04 14:53 | Inpatient (IN) | payer MEDICARE, OTHER ==
[~2019-03-04 14:53] MED LIST: ALENDRONATE TAB 70M PO; ASPIRIN81 MG PO; ATIVAN0.5 MG PO; BISOPROLOL FUMARATE PO; BISOPROLOL-HCT1 EAC1; HYDROCODON-ACE1 EA10 PO; HYDROCODON-ACE1 EAC7 PO; LEVOFLOXACIN500 MG PO; LOVENOX40 MG/0.4 SC; MIRALAX17 GM PO; NORVASC2.5 MG PO; PRAVACHOL20 MG; PROTONIX40 MG PO; Senokot-S Tablet PO
[2019-03-04 17:23] VITALS: BP 102/61; BMI 27.1
--- NOTE | 2019-03-04 17:58 | NUR ---
PT RESTING IN BED WITH EYES OPEN CALL LIGHT IN REACH WILL MONITER
[2019-03-04 19:00] VITALS: BP 102/61
--- NOTE | 2019-03-04 19:05 | NUR ---
GREETED PATIENT AND INTRODUCED MYSELF HER NURSE FOR THE EVENING. PATIENT IS LAYING IN SUPINE POSITION. HOB AT 30 DEGREES. DENIES ANY PAIN AT THIS TIME OR ANY OTHER NEEDS. CALL LIGHT IN REACH.
--- NOTE | 2019-03-05 02:02 | NUR ---
PATIENT RESTING QUIETLY LAYING IN SUPINE POSITION. HOB AT 30 DEGREES. RESPIRATIONS EVEN. NO S/S OF DISTRESS. SR UP X 2. BED IN LOWEST POSITION. CALL LIGHT IN REACH.
[2019-03-05 05:30] LABS: BASOPHILS 0.3 % (0-2); EOSINOPHILS 3.7 % (0-7); HEMATOCRIT 27.8 % (36.0-48.0); HEMOGLOBIN 9.3 g/dL (12-16); IMMATURE GRANULOCYTES 2.1 % (0-5); LYMPHOCYTES 11.9 % (15-50); MCH 29.8 pg (26.0-34.0); MCHC 33.5 g/dL (31.0-37.0); MCV 89.1 fL (80.0-100.0); MEAN PLATELET VOLUME 9.1 fL (7.4-10.4); MONOCYTES 7.7 % (2-11); NEUTROPHILS 74.3 % (40-80); PLATELET COUNT 233 10x3/uL (130-400); RBC 3.12 10x6/uL (4.00-5.40); RDW 14.9 % (11.5-14.5); WBC 7.3 10x3/uL (4.8-10.8)
[2019-03-05 05:52] LABS: CALC OSMOLALITY 284 mosm/kg (275-300); CALCIUM 8.6 mg/dL (8.5-10.1); CARBON DIOXIDE 26.5 mmol/L (21.0-32.0); CHLORIDE - SERUM 108 mmol/L (98-107); CREATININE - SERUM 0.6 mg/dL (0.6-1.3); GLUCOSE 118 mg/dL (74-106); POTASSIUM - SERUM 4.1 mmol/L (3.5-5.1); SODIUM 141 mmol/L (136-145); UREA NITROGEN 21 mg/dL (7-18); eGFR NON AFRICAN AMERICAN > 90 mL/min (90-120)
--- NOTE | 2019-03-05 07:26 | NUR ---
PATIENT SITTING UP IN BED. ALERT/ORIENT. CALL LIGHT WITHIN REACH. VOICES NO NEEDS AT THIS TIME. WILL CONTINUE WITH PLAN OF CARE
[2019-03-05 08:00] VITALS: BP 159/73
--- NOTE | 2019-03-05 09:19 | NUR ---
PATIENT IN REHAB ROOM. WORKING WITH OCCUPATIONAL THERAPIST. DENIES ANY PAIN/DISC AT THIS TIME.
--- NOTE | 2019-03-05 10:15 | NUR ---
ZEBETA NOT GIVEN THIS AM. THIS NURSE HAS TALKED TO PHARMACY X3 IN REGARDS TO THIS MEDICATION. MEDICATION NOT IN PYXIS OR IN DRAWER. PHARMACY HAS NOT BROUGHT IT DOWN
--- NOTE | 2019-03-05 12:05 | NUR ---
PATIENT RESTING IN BED AFTER THERAPY. PATIENT HAS VISITORS IN ROOM.
[2019-03-05 13:58] VITALS: BMI 27.0
[2019-03-05 18:56] VITALS: BP 136/60
--- NOTE | 2019-03-05 18:56 | NUR ---
GREETED PATIENT AND INTRODUCED MYSELF. VITAL SIGNS OBTAINED. PATIENT DENIES ANY NEEDS AT THIS TIME. CALL LIGHT IN REACH.
--- NOTE | 2019-03-05 23:13 | NUR ---
PATIENT RESTING IN BED QUIETLY WITH EYES CLOSED. RESPIRATIONS EVEN. NO S/S OF DISTRESS. SR UP X 2. BED IN LOWEST POSITION. CALL LIGHT IN REACH.
--- NOTE | 2019-03-06 04:31 | NUR ---
PATIENT RESTING QUIETLY WITH EYES CLOSED LAYING IN SUPINE POSITION. HOB AT 30 DEGREES. RESPIRATIONS EVEN AND UNLABORED. CALL LIGHT IN REACH.
--- NOTE | 2019-03-06 05:13 | NUR ---
PATIENT AWAKE AND ASSISTED TO BATHROOM USING WHEELCHAIR. BACK TO BED AND REPOSITIONED FOR COMFORT. CALL LIGHT IN REACH.
--- NOTE | 2019-03-06 07:29 | NUR ---
PATIENT RESTING IN BED. EYES CLOSED. CALL LIGHT WITHIN REACH. WILL CONTINUE WITH PLAN OF CARE
[2019-03-06 08:30] VITALS: BP 138/95
--- NOTE | 2019-03-06 10:00 | NUR ---
PATIENT SAT UP FOR BREAKFAST. HELPED BACK TO BED AFTER BREAKFAST FROM WHEELCHAIR ONTO BED. PATIENT IS A MAX ASST OF ONE. TTWB ON THE LEFT SIDE. PATIENT DOES NOT STAND UP STRAIGHT, BUT LOOKS AT THE FLOOR WHEN STANDING. MUCH CUEING NEEDED WHEN TRANSFERING THIS PATIENT
--- NOTE | 2019-03-06 21:13 | NUR ---
PATIENT RESTING IN BED AT START OF SHIFT. C/O OF FEELING A CREASE UNTER HER BUTTUCKS. CHECKED AND SMOOTHED OUT PADS. PATIENT STATED IT WAS BETTER. STATES ADRIAN LEG IS UNCOMFORTABLE BUT REFUSES PAIN MEDICATION AT THIS TIME. WILL CONTINUE TO MONITOR. CALL LIGTH WITHIN REACH.
[2019-03-06 21:38] VITALS: BP 128/61
--- NOTE | 2019-03-06 22:15 | NUR ---
C/O LEG/HIP PAIN AFTER GETTING UP TO GO TO BATHROOM. MEDICATED WITH PRN NORCO.
--- NOTE | 2019-03-06 23:13 | NUR ---
PRN ATIVAN GIVEN PER PATIENT REQUEST.
[2019-03-07 06:55] LABS: BASOPHILS 0.3 % (0-2); EOSINOPHILS 3.3 % (0-7); HEMATOCRIT 26.8 % (36.0-48.0); HEMOGLOBIN 8.8 g/dL (12-16); IMMATURE GRANULOCYTES 3.6 % (0-5); LYMPHOCYTES 15.6 % (15-50); MCH 29.5 pg (26.0-34.0); MCHC 32.8 g/dL (31.0-37.0); MCV 89.9 fL (80.0-100.0); MEAN PLATELET VOLUME 8.8 fL (7.4-10.4); MONOCYTES 9.1 % (2-11); NEUTROPHILS 68.1 % (40-80); PLATELET COUNT 239 10x3/uL (130-400); RBC 2.98 10x6/uL (4.00-5.40); RDW 15.2 % (11.5-14.5); WBC 6.4 10x3/uL (4.8-10.8)
[2019-03-07 07:32] LABS: CALC OSMOLALITY 284 mosm/kg (275-300); CALCIUM 8.6 mg/dL (8.5-10.1); CARBON DIOXIDE 25.2 mmol/L (21.0-32.0); CHLORIDE - SERUM 107 mmol/L (98-107); CREATININE - SERUM 0.6 mg/dL (0.6-1.3); GLUCOSE 103 mg/dL (74-106); POTASSIUM - SERUM 3.6 mmol/L (3.5-5.1); SODIUM 142 mmol/L (136-145); UREA NITROGEN 19 mg/dL (7-18); eGFR NON AFRICAN AMERICAN > 90 mL/min (90-120)
[2019-03-07 08:00] VITALS: BP 136/70
--- NOTE | 2019-03-07 08:45 | NUR ---
PT AM MEDS ADMINISTERED. PT GIRMA DUEÑAS. LUBNA.
[2019-03-07 19:00] VITALS: BP 131/60
--- NOTE | 2019-03-07 20:04 | NUR ---
AWAKE AND ALERT. RESTING IN BED. RESPIRATIONS UNLABORED. RADAMES WRAP INTACT TO LEFT LOWER ARM. GLUED INCISION TO LEFT HIP INTACT. NO ACUTE DISTRESS NOTED. CALL LIGHT IN REACH.
--- NOTE | 2019-03-08 02:11 | NUR ---
RESTING IN BED WITH EYES CLOSED AND RESPIRAITONS UNLABORED. NO DISTRESS NOTED. CALL LIGHT IN REACH.
--- NOTE | 2019-03-08 05:21 | NUR ---
QUIET HOURS. RESTING IN BED. NO ACUTE CHANGES IN CONDITION THIS SHIFT. NO DISTRESS NOTED.
--- NOTE | 2019-03-08 07:17 | NUR ---
RESTING, NO DISTRESS NOTED. RESP EVEN AND UNLABORED. CL IN REACH.
[2019-03-08 08:00] VITALS: BP 149/71
--- NOTE | 2019-03-08 12:11 | NUR ---
Nutrition Follow up Regular diet with 50% average po intake BM today Pt reports she believes Ensure was causing gas and decreasing po intake Pt has stopped ordering supplement Encouraged protein intake to help optimize progress in therapy RD following
--- NOTE | 2019-03-08 13:28 | NUR ---
PATIENT ADMITTED TO REHAB FROM ACUTE FLOOR. DR. Venancio SHAH IS HER PCP. DME AT HOME IS WALKER, SHOWER CHAIR, BEDSIDE COMMODE AND PATIENT HAS LIFE ALERT. SHE HAS HIRED SUPERIOR FPC AT DISCHARGE TO ASSIST WITH 24/7 CARE. WILL MARICRUZUE TO FOLLOW WITH PATIENT.
--- NOTE | 2019-03-08 13:45 | NUR ---
PARTICIPATING IN THERAPY. NO C/O PAIN.
--- NOTE | 2019-03-08 16:23 | NUR ---
NO CHANGE IN ASSESSMENT. RESTING . CL IN REACH.
[2019-03-08 19:00] VITALS: BP 132/63
--- NOTE | 2019-03-08 19:45 | NUR ---
PATIENT RECEIVED SITTING UP IN BED. ASSESSMENT & VITAL SIGNS DONE. NO C/O PAIN OR DISTRESS. BED. LOW. PATIENT ABLE TO VOICE HER NEEDS 7 USE CALL LIGHT WITHIN REACH. WILL CONTINUEN TO MONITOR,
--- NOTE | 2019-03-09 01:15 | NUR ---
PATIENT EYES CLOSED. RESPIRATIONS 18 & EVEN. ALARM ON. BED LOW. CALL LIGHT WITHIN REACH. WILL CONTINUE TO MONITOR.
--- NOTE | 2019-03-09 02:24 | NUR ---
AWAKE AND RESTING IN BED. REPOSITIONED IN BED. RESPIRAITONS UNLABORED. NO DISTRESS NOTED. RADAMES WRAP INTACT TO LEFT ARM. CALL LIGHT IN REACH.
--- NOTE | 2019-03-09 03:51 | NUR ---
PATIENT EYES CLOSED. RESPIRATIONS 18 & EVEN. BED LOW. ALARM ON. CALL LIGHT WITHIN REACH. WILL CONTINUE TO MONITOR.
[2019-03-09 06:44] LABS: CALC OSMOLALITY 284 mosm/kg (275-300); CALCIUM 8.6 mg/dL (8.5-10.1); CHLORIDE - SERUM 109 mmol/L (98-107); CREATININE - SERUM 0.7 mg/dL (0.6-1.3); GLUCOSE 102 mg/dL (74-106); POTASSIUM - SERUM 4.1 mmol/L (3.5-5.1); SODIUM 142 mmol/L (136-145); UREA NITROGEN 18 mg/dL (7-18); eGFR NON AFRICAN AMERICAN 84 mL/min (90-120)
[2019-03-09 06:47] LABS: BASOPHILS 0.1 % (0-2); EOSINOPHILS 2.7 % (0-7); HEMATOCRIT 29.4 % (36.0-48.0); IMMATURE GRANULOCYTES 1.5 % (0-5); MCH 30.9 pg (26.0-34.0); MCV 90.7 fL (80.0-100.0); MONOCYTES 6.4 % (2-11); NEUTROPHILS 75.3 % (40-80); RBC 3.24 10x6/uL (4.00-5.40); RDW 15.5 % (11.5-14.5); WBC 6.7 10x3/uL (4.8-10.8)
[2019-03-09 07:05] LABS: PLATELET COUNT 328 10x3/uL (130-400)
--- NOTE | 2019-03-09 07:15 | NUR ---
RESTING WO DISTRESS. RESP EVEN AND UNLABORED. NO C/O PAIN. CL IN REACH.
[2019-03-09 08:00] VITALS: BP 126/65
--- NOTE | 2019-03-09 10:32 | NUR ---
PARTICIPATING IN THERAPY. NO C/O PAIN.
--- NOTE | 2019-03-09 16:20 | NUR ---
NO CHANGE IN ASSESSMENT. RESTING WITH RESP EVEN AND UNLABORED. CL IN REACH.
[2019-03-09 19:00] VITALS: BP 117/59
--- NOTE | 2019-03-09 19:42 | NUR ---
PATIENT RECEIVED SITTING UP IN BED. ASSESSMENT & VITAL SIGNS DONE. NO C/O PAIN OR DISTRESS. PATIENT BED LOW. ALARM ON. CALL LIGHT & TABLE WITHIN REACH. WILL CONTINUE TO MONITOR.
--- NOTE | 2019-03-09 23:59 | NUR ---
PATIENT EYES CLOSED. RESPIRATIONS 18 & EVEN. BED LOW. ALARM ON. CALL LIGHT WITHIN REACH. WILL CONTINUE TO MONITOR.
--- NOTE | 2019-03-10 03:03 | NUR ---
AWAKE AND BEING ASSISTED TO THE BATHROOM PER EMERGENCY MEDICINE PHYSICIAN. NO ACUTE DISTRESS NOTED. WRIST REMAINS IN RADAMES WRAP/SOFT CAST. RESPIRATIONS UNLABORED.
[2019-03-10 08:00] VITALS: BP 153/69
--- NOTE | 2019-03-10 08:35 | NUR ---
PT RESTING IN BED WITH EYES OPEN CALL LIGHT IN REACH NO PROBLEMS WILL MONITER
--- NOTE | 2019-03-10 18:36 | NUR ---
I have reviewed this patient and I concur with the Shift Assessment completed by the Licensed Practical Nurse today this shift.
[2019-03-10 19:30] VITALS: BP 160/63
--- NOTE | 2019-03-10 19:56 | NUR ---
GREETED PATIENT AND INTRODUCED MYSELF HER NURSE. PATIENT LAYING IN BED IN SUPINE POSITION. DENIES ANY FURTHER NEEDS AT THIS TIME. CALL LIGHT IN REACH.
--- NOTE | 2019-03-10 21:00 | NUR ---
PATIENT IS REFUSING TO TAKE SCHEDULED SHOWER. PATIENT STATED THAT SHE THOUGHT THAT ROOM WAS TO COOL AND SHE WOULD WAIT UNTIL TOMORROW WHEN HER ROOMMATE LEAVES SO SHE CAN TURN THE HEAT UP.
--- NOTE | 2019-03-11 01:53 | NUR ---
PT IN BED LOWEST POSITION, EYES CLOSED AROUSES EASILY TO VOICE, BREATHS SLOW EVEN AND UNLABORED, NO NEEDS NOTED, FLUIDS AND CALL LIGHT WITHIN REACH,
--- NOTE | 2019-03-11 02:34 | NUR ---
PATIENT RESTING WITH EYES CLOSED LAYING IN SUPINE POSITION. HOB AT 30 DEGREES. RESPIRATIONS EVEN. NO S/S OF DISTRESS. CALL LIGHT IN REACH.
[2019-03-11 07:15] LABS: BASOPHILS 0.3 % (0-2); EOSINOPHILS 2.7 % (0-7); HEMATOCRIT 33.1 % (36.0-48.0); HEMOGLOBIN 10.5 g/dL (12-16); IMMATURE GRANULOCYTES 0.6 % (0-5); LYMPHOCYTES 11.9 % (15-50); MCH 29.3 pg (26.0-34.0); MCHC 31.7 g/dL (31.0-37.0); MCV 92.5 fL (80.0-100.0); MEAN PLATELET VOLUME 9.3 fL (7.4-10.4); MONOCYTES 8.2 % (2-11); NEUTROPHILS 76.3 % (40-80); RBC 3.58 10x6/uL (4.00-5.40); RDW 15.9 % (11.5-14.5); WBC 6.4 10x3/uL (4.8-10.8)
[2019-03-11 07:17] LABS: PLATELET COUNT 425 10x3/uL (130-400)
[2019-03-11 07:24] LABS: ANION GAP 12.4 mmol/L (8-16); CALCIUM 9.2 mg/dL (8.5-10.1); CARBON DIOXIDE 25.1 mmol/L (21.0-32.0); CREATININE - SERUM 0.8 mg/dL (0.6-1.3); POTASSIUM - SERUM 3.5 mmol/L (3.5-5.1)
--- NOTE | 2019-03-11 08:00 | NUR ---
PATIENT IS ALERT/ORIENT. SITTING UP FOR BREAKFAST. DUE TO LEFT HIP FRACTURE CONTAINORS NEED TO BE OPEN AND FOOD NEEDS TO BE CUT UP. CALL LIGHT WITHIN PATIENTS REACH. WILL CONTINUE WITH PLAN OF CARE
[2019-03-11 08:09] VITALS: BP 126/54
--- NOTE | 2019-03-11 10:23 | NUR ---
PATIENT IN REHAB ROOM. WORKING WITH PHYSICAL THERAPIST. DENIES ANY PAIN/DISC AT THIS TIME
--- NOTE | 2019-03-11 11:31 | RHP ---
PATIENT: VENESSA HICKS MEDICAL RECORD: [id number] ACCOUNT: [id number] [id number] [birth year] ADMISSION DATE: 03/04/19 REHABILITATION HISTORY AND PHYSICAL EXAMINATION POST ADMISSION PHYSICIAN EXAMINATION DATE OF ADMISSION: 03/04/2019 ADMITTING DIAGNOSIS: Displaced left intertrochanteric fracture. HISTORY OF PRESENT ILLNESS: The patient is an 88-year-old female patient who presents to the rehab with a displaced intertrochanteric fracture. The patient has had a hemiarthroscopy. The patient apparently is status post left distal radial fracture open reduction internal fixation. Also, a left proximal femur periprosthetic open reduction internal fixation, postop day #6 upon admission to the rehab. This is an 88-year-old female patient sees Dr. Carr. She presented to ED on 02/24/2019 with complaints of falling after missing a step while carrying a heavy box. She had left wrist and left hip pain. At that time, she denied any other symptoms such as with shortness of breath, dizziness, palpitations or chest pain. The patient had x-rays, which showed an acute left wrist fracture of the ulnar styloid and distal radius and an acute left minimally displaced intertrochanteric fracture. She had acute blood loss anemia. Orthopedic consult was done with Dr. Mark. Postoperatively, her potassium was replaced secondary to a potassium protocol. She is admitted, seen by PT, OT and case management. The patient was transfused 1 unit of packed red blood cells on 02/28/2019. Her stool guaiac was also done at that time. The patient did have a temperature after this. Chest x-ray and UTI were addressed during this time. Blood cultures were ordered. She was started on Levaquin. She has self-care deficit. She continues to have a requirement of ongoing medical management and physician oversight. The patient was continued need for 24-hour care of an RN for DVT prophylaxis, medical management, skin care management, lab monitoring, blood pressure management. Bowel and bladder regimens are undergoing at this time. Prior to this fall, she was living alone. She is completely independent for ADLs and ambulation. She is max assist with ADLs and total assist with ambulation. She requires a platform walker and is toe-touch weightbearing on left lower extremity and weightbearing minimally on her elbow. The patient will require intensive therapy in order to get back to her prior level of functioning. COMORBIDITIES: In this patient include acute fall at home, left wrist fracture, acute blood loss anemia, hypertension and hyperlipidemia. PAST MEDICAL HISTORY: Significant for hypertension, cholesterol problems. PAST SURGICAL HISTORY: Includes surgery on her hip and arm now at this time. ALLERGIES: No known drug allergies. CURRENT MEDICATIONS: Include Pravachol 20 mg daily, Protonix 40 mg daily. She is on Floranex daily, Levaquin 500 mg daily, enoxaparin 40 mg subQ daily, Zebeta 10 mg daily, aspirin chewable 81 mg daily, amlodipine 5 mg daily, polyethylene glycol 17 grams in 8 ounces of water daily, lorazepam 0.5 mg every 8 hours p.r.n., [place] 5/325 one tab every 4 hours p.r.n. HABITS: No alcohol or tobacco use. HISTORY AND PHYSICAL [id number] VENESSA HICKS FAMILY HISTORY: Noncontributory. SOCIAL HISTORY: The patient hopes to return back home and get back to her prior level of functioning. REVIEW OF SYSTEMS: GENERAL: Does complain of some weakness and fatigue. HEENT: Denies cold, cough, or congestion. CARDIOVASCULAR: Denies chest pain. PHYSICAL EXAMINATION: VITAL SIGNS: Stable, afebrile. GENERAL: A well-developed female in no acute distress upon exam. HEENT: Normocephalic and atraumatic. Mucosa moist. NECK: Supple. No lymphadenopathy. LUNGS: Clear at this time. HEART: Has a regular rhythm. No murmurs, rubs or gallops. ABDOMEN: Benign. EXTREMITIES: Does have a casting and post-surgical changes to her wrist. NEUROLOGIC: She does have noted proximal muscle weakness. LABORATORY DATA: White count is 7.3, H&H of 9.3 and 27.8 and platelet count is 233. Her sodium is 141, potassium 4.1, BUN and creatinine of 21 and 0.6 and blood sugar is noted to be 118. ASSESSMENT: This is an 88-year-old female patient admitted to rehab with a working diagnosis of hip and wrist fracture. The patient has potential to make improvement. We instituted the following multidisciplinary therapies including, but not limited to physical, occupational, respiratory, speech, nutritional services, prosthetics and orthotics. Given her complex medical condition and risks for more complications, rehabilitation services cannot be provided at a low level of care such as skilled nurse facility. PLAN: 1. Admit to [facility] for intensive inpatient therapy to include the following disciplines: A. Physical therapy to improve gait, all transfer skills and bed mobility to a modified independent level. B. Occupational therapy to a modified independent level. C. Case management to assist with discharge planning and placement options. D. Nutrition to assist with nutritional needs. E. Rehabilitation nursing to assist in monitoring the patient's underlying medical conditions and to assist with any type of bowel or bladder management. 2. The patient's current medication and medical care will be continued. 3. The patient will be placed on standard fall precautions. 4. The patient's estimated length of stay is approximately 7-10 days. 5. We will discuss this patient during care team staff meeting this week. TRANSINT:[id number] Voice Confirmation ID: [id number] DOCUMENT ID: [id number] MOSES notes whether there has been none or any medical/functional change since admission: - HISTORY AND PHYSICAL [id number] VENESSA HICKS attests patient continues to be appropriate for IRF: - ADAM GALAN MD at 1131 CC: [id number] DICTATION DATE: 03/05/19 1248 LITHOGRAPH PRINTER: 03/05/19 1646 ADM IN [facility] [address] [place] [address]
--- NOTE | 2019-03-11 13:38 | NUR ---
PATIENT HELPED BACK TO BED AFTER THERAPY AND LUNCH. MOD ASST OF ONE PERSON FROM WHEELCHAIR TO BED. LEFT SIDE IMPAIRED DUE TO FRACTURES
--- NOTE | 2019-03-11 17:34 | NUR ---
I have reviewed this patient and I concur with the Shift Assessment completed by the Licensed Practical Nurse today this shift.
--- NOTE | 2019-03-11 17:46 | NUR ---
PATIENT SITTING UP IN WHEELCHAIR AT BEDSIDE TO EAT SUPPER. CALL LIGHT WITHIN REACH. VOICES NO NEEDS AT THIS TIME.
[2019-03-11 19:00] VITALS: BP 137/65
--- NOTE | 2019-03-11 19:26 | NUR ---
PT RESTING QUIETLY EYES CLOSED. BED IN LOW. SIDE RAILS X2. NO SIGNS OF DISTRESS OR PAIN. CALL LIGHT IN REACH. RESP EVEN AND UNLABORED. WILL CONTINUE TO MONITOR.
--- NOTE | 2019-03-11 23:00 | NUR ---
PT LYING IN BED. CALL LIGHT IN REACH. BED IN LOW. RESP EVEN AND UNLABORED. DENIES NEEDS OR PAIN AT THIS TIME. A/O X4. LUNGS CLEAR. BOWEL ACTIVE X4. MEDS GIVEN WHOLE. TOILETED PT. PT BACK IN BED. WCTM.
--- NOTE | 2019-03-12 02:36 | NUR ---
I have reviewed this patient and I concur with the Shift Assessment completed by the Licensed Practical Nurse today this shift.
--- NOTE | 2019-03-12 04:00 | NUR ---
assisted pt to and from bathroom. back in bed. call light in reach. denies further needs or pain. wctm
[2019-03-12 08:00] VITALS: BP 137/68
--- NOTE | 2019-03-12 08:02 | NUR ---
PATIENT IS ALERT/ORIENT. SITTING UP IN WHEELCHAIR TO EAT BREAKFAST. CALL LIGHT WITHIN REACH. DENIES ANY NEEDS AT THIS TIME. WILL CONTINUE WITH PLAN OF CARE
--- NOTE | 2019-03-12 09:46 | NUR ---
PATIENT HELPED TO BATHROOM. MODERATE ASST OF ONE. PATIENT HAS STRESS INCONT OF URINE. WEARS BRIEFS
--- NOTE | 2019-03-12 12:42 | NUR ---
I have reviewed this patient and I concur with the Shift Assessment completed by the Licensed Practical Nurse today this shift.
--- NOTE | 2019-03-12 13:41 | NUR ---
PATIENT RESTING IN BED AFTER THERAPY AND LUNCH. CALL LIGHT WITHIN REACH. VOICES NO NEEDS AT THIS TIME
--- NOTE | 2019-03-12 15:14 | NUR ---
PATIENT HELPED INTO BATHROOM. DRESSING TO LEFT HIP HAS COME HALF WAY OFF WITH CLOTHING. DRESSING REMOVED. INCISION IS CLEAN AND DRY. EDGES APPROXIMATED. INCISION KEPT OPEN TO AIR
--- NOTE | 2019-03-12 19:32 | NUR ---
PT SITTING UP IN BED WATCHING TV. CALL LIGHT IN REACH. DENIES NEEDS OR PAIN AT THIS TIME. BED IN LOW.SIDE RAILS X2. RESP EVEN AND UNLABORED. A/O X4. WILL CONTINUE TO MONITOR.
[2019-03-12 20:53] VITALS: BP 168/65
--- NOTE | 2019-03-12 22:13 | NUR ---
PATIENT RESTING QUIETLY IN ROOM WATCHING TV. WILL CONTINUE TO MONITOR. CALL LIGHT WITHIN REACH.
--- NOTE | 2019-03-13 00:27 | NUR ---
PATIENT AWAKE. C/O GAS. ASSISTED PATIENT TO SIT UP IN BED PER HER REQUEST. WILL CONTINUE TO [facility].
--- NOTE | 2019-03-13 07:50 | NUR ---
PATIENT ALERT/ORIENT. SITTING UP IN BED TO EAT BREAKFAST. CALL LIGHT WITHIN REACH. VOICES NO NEEDS. WILL CONTINUE WITH PLAN OF CARE.
[2019-03-13 08:00] VITALS: BP 144/70
--- NOTE | 2019-03-13 10:21 | NUR ---
PATIENT HAS COMPANY IN ROOM. THIS NURSE TALKED TO PATIENT ABOUT ROOM CHANGE. DUE TO NEEDED HER ROOM FOR A MALE PATIENT. PATIENT STATED "I AM OK WITH THAT".
--- NOTE | 2019-03-13 14:24 | NUR ---
PATIENT SAT UP FOR LUNCH. HELPED BACK TO BED AFTER LUNCH. MOD ASST OF ONE FOR TRANSFERS
--- NOTE | 2019-03-13 17:51 | NUR ---
I have reviewed this patient and I concur with the Shift Assessment completed by the Licensed Practical Nurse today this shift.
[2019-03-13 21:43] VITALS: BP 126/68
--- NOTE | 2019-03-13 22:17 | NUR ---
PATIENT ALERT AND ORIENTED AND SITTING UP IN WHEELCHAIR AT 1900. VITAL SIGNS WERE TAKEN AND PATIENT WAS TAKEN TO BATHROOM AND ASSISTED TO BED. REQUESTED [employer] FOR CONSTIPATION. RESTING QUIETLY AT THIS TIME. WILL CONTINUE TO MONITOR.
[2019-03-14 06:42] LABS: BASOPHILS 0.8 % (0-2); EOSINOPHILS 3.3 % (0-7); IMMATURE GRANULOCYTES 0.3 % (0-5); LYMPHOCYTES 15.5 % (15-50); MCH 29.6 pg (26.0-34.0); MCHC 32.4 g/dL (31.0-37.0); MCV 91.6 fL (80.0-100.0); MEAN PLATELET VOLUME 8.9 fL (7.4-10.4); MONOCYTES 10.1 % (2-11); PLATELET COUNT 370 10x3/uL (130-400); RBC 3.71 10x6/uL (4.00-5.40); RDW 15.7 % (11.5-14.5); WBC 3.7 10x3/uL (4.8-10.8)
[2019-03-14 07:00] LABS: CALC OSMOLALITY 281 mosm/kg (275-300); CALCIUM 8.5 mg/dL (8.5-10.1); CARBON DIOXIDE 24.6 mmol/L (21.0-32.0); CHLORIDE - SERUM 106 mmol/L (98-107); CREATININE - SERUM 0.6 mg/dL (0.6-1.3); GLUCOSE 99 mg/dL (74-106); POTASSIUM - SERUM 3.6 mmol/L (3.5-5.1); SODIUM 141 mmol/L (136-145); UREA NITROGEN 15 mg/dL (7-18); eGFR NON AFRICAN AMERICAN > 90 mL/min (90-120)
[2019-03-14 08:00] VITALS: BP 136/65
--- NOTE | 2019-03-14 08:29 | NUR ---
THE PATIENT WAS EATING BREAKFAST WHEN STAFF ENTERED HER ROOM. BED IS IN THE LOW POSITION WITH SIDERAILS X2 AND CALL LIGHT WITHIN REACH. THE PATIENT DEMONSTRATES APPROPRIATE USE OF A CALL LIGHT. THE PATIENT APPEARS COMFORTABLE AND HAS NO QUESTIONS OR CONCERNS AT THIS TIME.
[2019-03-14 19:00] VITALS: BP 133/69
--- NOTE | 2019-03-14 20:00 | NUR ---
PATIENT RECEIVED SITTING UP IN BED. ASSESSMENT & VITAL SIGNS DONE. NO C/O PAIN OR DISTRESS. PATIENT BED LOW. CALL LIGHT WITHIN REACH. ALARM ON. WILL CONTINUE TO MONITOR.
--- NOTE | 2019-03-14 23:52 | NUR ---
PT IN BED, LOWEST POSITION, EYES CLOSED, AROUSES EASILY TO VOICE, NO IMMEDIATE NEEDS NOTED, FLUIDS AND CALL LIGHT WITHIN REACH
--- NOTE | 2019-03-15 02:36 | NUR ---
PATIENT EYES CLOSED. RESPIRATIONS 18 & EVEN. BED LOW. CALL LIGHT WITHIN REACH. WILL CONTINUE TO MNOITOR.
[2019-03-15 08:00] VITALS: BP 141/67
--- NOTE | 2019-03-15 08:15 | NUR ---
PT RESTING IN BED WITH EYES OPEN CALL LIGHT IN REACH WILL MONITER
--- NOTE | 2019-03-15 09:32 | NUR ---
IN THERAPY AT THIS TIME. NO C/O PAIN.
--- NOTE | 2019-03-15 09:56 | NUR ---
Nutrition follow up Regular diet with 45% average po intake Pt reports the food is good and that she is eating as much as possible Encouraged protein RD following
--- NOTE | 2019-03-15 13:21 | NUR ---
I have reviewed this patient and I concur with the Shift Assessment completed by the Licensed Practical Nurse today this shift.
--- NOTE | 2019-03-15 18:09 | NUR ---
PT RESTING IN BED WITH EYES OPEN CALL LIGHT IN REACH NO PROBLEMS
--- NOTE | 2019-03-15 19:16 | NUR ---
REST IN BED, DENIES NEEDS AT THIS TIME.
--- NOTE | 2019-03-15 19:29 | NUR ---
CHECKED VITAL SIGNS, RESULT SEE FLOW SHEET.
[2019-03-16 00:48] VITALS: BP 152/66
--- NOTE | 2019-03-16 04:19 | NUR ---
REST IN BED, CALL LIGHT IN REACH.
[2019-03-16 07:02] LABS: HEMATOCRIT 31.3 % (36.0-48.0); HEMOGLOBIN 10.2 g/dL (12-16); MCH 29.7 pg (26.0-34.0); MCHC 32.6 g/dL (31.0-37.0); MEAN PLATELET VOLUME 9.3 fL (7.4-10.4); PLATELET COUNT 311 10x3/uL (130-400); RBC 3.44 10x6/uL (4.00-5.40); RDW 15.7 % (11.5-14.5)
[2019-03-16 07:10] LABS: WBC 2.4 10x3/uL (4.8-10.8)
[2019-03-16 07:28] LABS: CALC OSMOLALITY 279 mosm/kg (275-300); CALCIUM 8.4 mg/dL (8.5-10.1); CARBON DIOXIDE 25.6 mmol/L (21.0-32.0); CHLORIDE - SERUM 106 mmol/L (98-107); CREATININE - SERUM 0.6 mg/dL (0.6-1.3); GLUCOSE 91 mg/dL (74-106); POTASSIUM - SERUM 3.4 mmol/L (3.5-5.1); SODIUM 140 mmol/L (136-145); UREA NITROGEN 14 mg/dL (7-18); eGFR NON AFRICAN AMERICAN > 90 mL/min (90-120)
[2019-03-16 08:03] LABS: LYMPHOCYTES 28 % (15-50); MONOCYTES 13 % (2-11); NEUTROPHILS 59 % (40-80); PLATELET ESTIMATE NORMAL; PLATELET MORPHOLOGY PLT CLUMPS PRESENT
[2019-03-16 08:04] LABS: ANISOCYTOSIS OCC
[2019-03-16 08:10] VITALS: BP 149/72
--- NOTE | 2019-03-16 08:37 | NUR ---
THE PATIENT WAS SITTING ON THE EDGE OF HER BED WHEN STAFF ENTERED HER ROOM. BED IS IN THE LOW POSITION WITH SIDERAILS X2 AND CALL LIGHT WITHIN REACH. THE PATIENT DEMONSTRATES APPROPRIATE USE OF A CALL LIGHT. THE PATIENT APEPARS COMFORTABLE WITH NO QUESTIONS OR CONCERNS AT THIS TIME.
--- NOTE | 2019-03-16 15:17 | NUR ---
GERONIMO TEAM MEETING: PATIENT FAMILY ATTENDED MEETING. THEIR QUESTIONS AND CONCERNS WERE ADDRESSED. TENATIVE DISCHARGE DATE IS 03/18/19. WILL CONTINUE TO FOLLOW WITH PATIENT
[2019-03-16 19:00] VITALS: BP 141/58
--- NOTE | 2019-03-16 20:22 | NUR ---
PT SITTING UP IN WC AT THIS TIME, ASSESSMENT PER FLOW SHEET, PT REPORTS FLATUS, BM YESTERDAY AND VOIDING WITH NO DIFFICULTY, ADM 2100 MEDS PER MD ORDERS, PT WAITING ON JUAN, DIRECTOR CARDIOLOGY TO GIVE HER A BATH, HANDED PT BAG, PT PICKED OUT OWN CLOTHING, BAG BACK TO CLOSET, DENIES FURTHER NEEDS
--- NOTE | 2019-03-16 21:33 | NUR ---
PAULIE MARTINEZA TO ROOM, GAVE PT BATH, PT DENIES FURTHER NEEDS OR PAIN AT THIS TIME
--- NOTE | 2019-03-16 23:30 | NUR ---
ROUNDS MADE, DESTINY CORDOVA IN ROOM, JUST TOOK PT TO BR, PT BACK TO BED, DENIES FURTHER NEEDS OR PAIN AT THIS TIME
--- NOTE | 2019-03-17 01:30 | NUR ---
PT RESTING WITH EYES CLOSED, RESP QUIET, NO DISTRESS NOTED, LEFT UNDISTURBED AT THIS TIME, BED IN LOW POSITION, SIDE RAILS X 2, CALL LIGHT IN REACH
--- NOTE | 2019-03-17 03:23 | NUR ---
PT RESTING WITH EYES CLOSED, RESP QUIET, NO DISTRESS NOTED, LEFT UNDISTURBED AT THIS TIME, BED IN LOW POSITION, SIDE RAILS X 2, CALL LIGHT IN REACH, BED ALARM ON AND WORKING PROPERLY
--- NOTE | 2019-03-17 05:18 | NUR ---
PT RESTING WITH EYES CLOSED, AROUSES TO SOFT VERBAL STIMULATION, ADM 0600 MED PER MD ORDERS, SEE EMAR, PT DENIES NEEDS OR PAIN AT THIS TIME, BED IN LOW POSITION, SIDE RAILS X 2, CALL LIGHT IN REACH
--- NOTE | 2019-03-17 05:46 | NUR ---
PT TAILOR GARMENT FITTER LIGHT, PT UP TO BR WITH ASSISTANCE VIA WC, PT VOIDED WITH NO DIFFICULTY, STRESS INCONT, PT HAD BM, BRIEF CHANGED, PT TO WC, TO SINK TO WASH HANDS, PT BACK TO BED, DENIES FURTHER NEEDS, BED IN LOW POSITION, SIDE RAILS X 2, CALL LIGHT IN REACH
--- NOTE | 2019-03-17 06:33 | NUR ---
PT AWAKE, WATCHING TV, DENIES NEEDS AT THIS TIME
[2019-03-17 08:00] VITALS: BP 140/67
--- NOTE | 2019-03-17 09:06 | NUR ---
THE PATIENT WAS SITTING IN HER BED WHEN STAFF ENTERED HER AREA. BED IS IN THE LOW POSITION WITH SIDERAILS X2 AND CALL LIGHT WITHIN REACH. THE PATIENT WAS EDUCATED ON AND DEMONSTRATED UNDERSTANDING OF THE NEED TO CALL FOR STAFF TO ASSIST WITH ANY ADLS THAT REQUIRE GETTING OUT OF BED FOR. THE PATIENT APPEARS COMFORTABLE WITH NO QUESTIOSN OR CONCERNS AT THIS TIME.
[2019-03-17 19:15] VITALS: BP 134/58; BP 195/98
--- NOTE | 2019-03-17 19:27 | NUR ---
AWAKE AND ALERT. RESPIRATIONS UNLABORED. SITTING IN WHEELCHAIR IN ROOM. RADAMES WRAP INTACT TO LEFT FOREARM. NO ACUTE DISTRESS NOTED. CALL LIGHT IN REACH.
--- NOTE | 2019-03-18 02:35 | NUR ---
RESTING IN BED WITH EYES CLOSED AND RESPIRATIONS UNLABORED. NO DISTRESS NOTED.
[2019-03-18 07:25] LABS: BASOPHILS 0.4 % (0-2); HEMATOCRIT 32.2 % (36.0-48.0); HEMOGLOBIN 10.5 g/dL (12-16); IMMATURE GRANULOCYTES 0.4 % (0-5); MCH 29.7 pg (26.0-34.0); MCHC 32.6 g/dL (31.0-37.0); MEAN PLATELET VOLUME 9.5 fL (7.4-10.4); MONOCYTES 13.2 % (2-11); PLATELET COUNT 291 10x3/uL (130-400); RBC 3.54 10x6/uL (4.00-5.40); RDW 15.5 % (11.5-14.5); WBC 2.3 10x3/uL (4.8-10.8)
[2019-03-18 07:38] LABS: CALC OSMOLALITY 288 mosm/kg (275-300); CALCIUM 8.5 mg/dL (8.5-10.1); CARBON DIOXIDE 25.9 mmol/L (21.0-32.0); CHLORIDE - SERUM 109 mmol/L (98-107); CREATININE - SERUM 0.5 mg/dL (0.6-1.3); GLUCOSE 87 mg/dL (74-106); POTASSIUM - SERUM 3.5 mmol/L (3.5-5.1); SODIUM 145 mmol/L (136-145); UREA NITROGEN 15 mg/dL (7-18); eGFR NON AFRICAN AMERICAN > 90 mL/min (90-120)
[2019-03-18 07:55] VITALS: BP 138/61
--- NOTE | 2019-03-18 09:00 | NUR ---
PATIENT DISCHARGING HOME TODAY WITH FAMILY. [facility] WILL PROVIDE THERAPY AT HOME. [facility] WILL PROVIDE 04/05 HOME CARE. [facility] WILL DELIVER A WHEELCHAIR TO PATIENT. DR. SHIRLEY SHAH 03/23/19 @ 1:15, DR. BEE 03/31/19 @ 10:00. PATIENT CHOICE FORM AND [facility] FORMS SIGNED, COPY GIVEN TO PATIENT AND FILED IN CHART. DISHCARGE INSTRUCTIONS WITH [facility] FAXED TO PCP, HOME HEALTH AND REVIEWED WITH PATIENT.
--- NOTE | 2019-03-18 09:35 | NUR ---
PT AM MEDS ADMINISTERED. PT GIRMA DUEÑAS. LUBNA.
--- NOTE | 2019-03-18 13:19 | NUR ---
PT DISCHARGE INSTRUCTIONS REVIEWED. PT STATES UNDERSTANDING. PT REFUSES TO HAVE MEDICATIONS CALLED IN STATING THAT SHE HAS PLENTY OF HER MEDICATIONS AT HOME. PT TRANSPORTED OUT VIA WHEELCHAIR. PT GOING HOME WITH DAUGHTER AT THIS TIME.
--- NOTE | 2019-03-18 14:55 | NUR ---
ORDER FOR BEDSIDE COMMODE TO BE DELIVERED TO HER HOME FROM [facility] FAXED
--- NOTE | 2019-03-18 15:19 | NUR ---
[facility]
== END 2019-03-18 13:35 | disposition home health service (06) | DRG 560 ==
LOC: D.REHAB 14:53
PROVIDERS: ADMIT Emergency Medicine; ATTEND Emergency Medicine
DX: S72.142D Displaced intertrochanteric fracture of left femur, subsequent encounter for closed fracture with routine healing (principal); D62 Acute posthemorrhagic anemia; S52.612D Displaced fracture of left ulna styloid process, subsequent encounter for closed fracture with routine healing; W19.XXXD Unspecified fall, subsequent encounter; I10 Essential (primary) hypertension; E78.5 Hyperlipidemia, unspecified